=== PATIENT | female | born 1935 | race Caucasian/White ===

== ENCOUNTER → 2023-10-01 09:42 | Outpatient (REF) | payer OTHER, SELFPAY ==
[2023-10-01 11:45] LABS: Blood Urea Nitrogen 27 mg/dl (7-17); Calcium 8.7 mg/dl (8.4-10.2); Carbon Dioxide 29 mmol/L (22-30); Chloride 104 mmol/L (98-107); Glucose 94 mg/dl (70-99); Potassium 4.1 mmol/L (3.5-5.1); Sodium 138 mmol/L (135-145); eGFR 39.55
== END ==
LOC: OLABWHC 09:42
PROVIDERS: ATTENDING PHYSICIAN Internal Medicine
DX: F02.818 Dementia in other diseases classified elsewhere, unspecified severity, with other behavioral disturbance (principal); E78.5 Hyperlipidemia, unspecified; F41.9 Anxiety disorder, unspecified; I10 Essential (primary) hypertension; N18.9 Chronic kidney disease, unspecified; R41.89 Other symptoms and signs involving cognitive functions and awareness
CPT/HCPCS: 36415; 80048

== ENCOUNTER → 2023-12-05 11:38 | Outpatient (REF) | payer OTHER, MEDICARE, SELFPAY ==
[2023-12-05 11:56] LABS: % Basophils 0.9 % (0-2); % Eosinophils 4.1 % (0-6); % Immature Granulocytes 0.7 % (0-0.5); % Lymphocytes 15.2 % (20.5-51.1); % Monocytes 6.5 % (1.7-9.3); % Neutrophils 72.6 % (42.2-75.2); Absolute Basophils 0.1 10^3/uL (0-0.2); Absolute Eosinophils 0.3 10^3/uL (0-0.7); Absolute Immature Granulocytes 0.1 10^3/uL (0-0.05); Absolute Lymphocytes 1.1 10^3/uL (1.2-3.4); Absolute Monocytes 0.5 10^3/uL (0.1-0.6); Absolute Neutrophils 5.5 10^3/uL (1.4-6.5); Hematocrit 36.5 % (37.0-47.0); Hemoglobin 12.3 g/dL (12.0-16.0); Mean Corp Hgb Conc. 33.7 g/dL (33.0-37.0); Mean Platelet Volume 10.8 fL (7.4-10.4); Nucleated Red Blood Cells % 0 %; Platelet Count 276 10^3/uL (130-400); Red Cell Dist. Width 13.1 % (11.5-14.5); White Blood Cell Count 7.5 10^3/uL (4.8-10.8)
[2023-12-05 12:15] LABS: ALT (SGPT) 10 U/L (0-35); AST (SGOT) 20 U/L (14-36); Albumin 3.5 g/dl (3.5-5.0); Alkaline Phosphatase 83 U/L (38-126); Direct Bilirubin 0.1 mg/dl (0.0-0.4); Glucose 95 mg/dl (70-99); HDL Cholesterol 62 mg/dl; LDL Cholesterol, Calculated 100 mg/dl; Total Bilirubin 0.5 mg/dl (0.2-1.3); Total Cholesterol 186 mg/dl (50-199); Triglyceride 124 mg/dl (10-149); Very Low Density Lipoprotein 24 mg/dl (0-30)
[2023-12-05 12:45] LABS: TSH 2.95 uIU/ml (0.47-4.68)
[2023-12-05 13:04] LABS: Vitamin B12 618 pg/ml (239-931)
[2023-12-05 14:00] LABS: Glycohemoglobin (HgbA1c) 5.7 % (4.0-5.6)
== END ==
LOC: OLABWHC 11:38
PROVIDERS: ATTENDING PHYSICIAN Internal Medicine
DX: E78.5 Hyperlipidemia, unspecified (principal); I10 Essential (primary) hypertension; N18.9 Chronic kidney disease, unspecified
CPT/HCPCS: 36415; 80061; 80076; 82607; 82947; 83036; 84443; 85025

== ENCOUNTER → 2024-02-28 10:51 | Outpatient (REF) | payer MEDICARE, SELFPAY ==
[2024-02-28 12:20] LABS: Hematocrit 36.4 % (37.0-47.0); Hemoglobin 12.1 g/dL (12.0-16.0); Mean Corp Hgb Conc. 33.2 g/dL (33.0-37.0); Mean Corpuscular Hgb 29.5 pg (27.0-31.0); Mean Corpuscular Volume 88.8 fL (81.0-99.0); Mean Platelet Volume 11.3 fL (7.4-10.4); Platelet Count 204 10^3/uL (130-400); Red Cell Dist. Width 13.5 % (11.5-14.5); White Blood Cell Count 7.7 10^3/uL (4.8-10.8)
[2024-02-28 12:37] LABS: Glycohemoglobin (HgbA1c) 5.8 % (4.0-5.6)
[2024-02-28 12:49] LABS: ALT (SGPT) 10 U/L (0-35); AST (SGOT) 19 U/L (14-36); Albumin 3.4 g/dl (3.5-5.0); Alkaline Phosphatase 91 U/L (38-126); Blood Urea Nitrogen 28 mg/dl (7-17); Calcium 8.8 mg/dl (8.4-10.2); Carbon Dioxide 26 mmol/L (22-30); Chloride 104 mmol/L (98-107); Glucose 94 mg/dl (70-99); HDL Cholesterol 54 mg/dl; LDL Cholesterol, Calculated 170 mg/dl; Magnesium 1.7 mg/dl (1.6-2.3); Potassium 3.4 mmol/L (3.5-5.1); Sodium 137 mmol/L (135-145); Total Bilirubin 0.5 mg/dl (0.2-1.3); Total Cholesterol 243 mg/dl (50-199); Triglyceride 96 mg/dl (10-149); Very Low Density Lipoprotein 19 mg/dl (0-30); eGFR 43.54
[2024-02-28 13:02] LABS: Free T4 1.21 ng/dl (0.78-2.19)
[2024-02-28 13:16] LABS: TSH 3.96 uIU/ml (0.47-4.68)
== END ==
LOC: OLABWHC 10:51
PROVIDERS: ATTENDING PHYSICIAN Internal Medicine
DX: F02.818 Dementia in other diseases classified elsewhere, unspecified severity, with other behavioral disturbance (principal); W19.XXXD Unspecified fall, subsequent encounter; F41.9 Anxiety disorder, unspecified; F32.9 Major depressive disorder, single episode, unspecified; R41.89 Other symptoms and signs involving cognitive functions and awareness; E78.5 Hyperlipidemia, unspecified; I10 Essential (primary) hypertension; N18.9 Chronic kidney disease, unspecified
CPT/HCPCS: 36415; 80053; 80061; 83036; 83735; 84439; 84443; 85027

== ENCOUNTER 2024-04-03 02:26 | Inpatient (IN) | payer MEDICARE, SELFPAY ==
[2024-04-02 15:59] VITALS: BP 197/95
[2024-04-02 16:38] LABS: % Basophils 0.7 % (0-2); % Eosinophils 2.4 % (0-6); % Immature Granulocytes 0.8 % (0-0.5); % Lymphocytes 17.1 % (20.5-51.1); % Monocytes 6.2 % (1.7-9.3); % Neutrophils 72.8 % (42.2-75.2); Absolute Basophils 0.1 10^3/uL (0-0.2); Absolute Eosinophils 0.3 10^3/uL (0-0.7); Absolute Immature Granulocytes 0.1 10^3/uL (0-0.05); Absolute Lymphocytes 1.8 10^3/uL (1.2-3.4); Absolute Monocytes 0.7 10^3/uL (0.1-0.6); Absolute Neutrophils 7.7 10^3/uL (1.4-6.5); Hematocrit 40.5 % (37.0-47.0); Hemoglobin 14.2 g/dL (12.0-16.0); Mean Corp Hgb Conc. 35.1 g/dL (33.0-37.0); Mean Corpuscular Hgb 30.5 pg (27.0-31.0); Mean Corpuscular Volume 87.1 fL (81.0-99.0); Mean Platelet Volume 11.1 fL (7.4-10.4); Nucleated Red Blood Cells % 0 %; Platelet Count 229 10^3/uL (130-400); Red Blood Cell Count 4.65 10^6/uL (4.20-5.40); Red Cell Dist. Width 13.7 % (11.5-14.5); White Blood Cell Count 10.5 10^3/uL (4.8-10.8)
[2024-04-02] MEDS: DILAUDID 0.5 MG IV (16:46)
[2024-04-02] MEDS: ZOFRAN 4 MG IV (16:46)
[2024-04-02 16:48] LABS: ALT (SGPT) 12 U/L (0-35); AST (SGOT) 22 U/L (14-36); Albumin 4.1 g/dl (3.5-5.0); Alkaline Phosphatase 117 U/L (38-126); Blood Urea Nitrogen 34 mg/dl (7-17); Carbon Dioxide 26 mmol/L (22-30); Chloride 103 mmol/L (98-107); Estimated Creatinine Clearance 35 ml/min; Glucose 118 mg/dl (70-99); Potassium 3.3 mmol/L (3.5-5.1); Sodium 139 mmol/L (135-145); Total Bilirubin 0.5 mg/dl (0.2-1.3); Total Protein 6.8 g/dl (6.3-8.2); eGFR 39.55
[2024-04-02] MEDS: NSS 1000 IV (16:49)
[2024-04-02 18:02] VITALS: BP 176/97
[2024-04-02 18:24] LABS: Urine Albumin 2+ (Neg - Trace); Urine Bilirubin Negative (Negative); Urine Character Slightly Cloudy (Clear); Urine Color Yellow; Urine Glucose Negative (Negative); Urine Ketone Negative (Negative); Urine Leukocyte Trace (Negative); Urine Nitrite Negative (Negative); Urine Occult Blood 1+ (Negative); Urine Urobilinogen Negative (Neg - 1+); Urine pH 6.5 (5.0-9.0)
[2024-04-02 18:51] LABS: Urine White Cell 0-2 /HPF (0-5)
--- NOTE | 2024-04-02 21:02 | ED.GENMED ---
History of Present Illness
<Carisa Burgos NP - Last Filed: 04/04/24 19:38>
General
Chief Complaint: Back Pain
Source: patient and family (son)
Time Seen by Provider: 04/02/24 16:32
Nursing documentation reviewed up to this point in time: agreed with
History of Present Illness
History of Present Illness:
Patient to ED from [facility] with sudden onset of severe low back and lower abd pain. SOn states he visited with patient this AM and she was doing well but then receivd call 2 hours later stating his mother is in pain. He denies any history of
new trauma. Brought to ED via EMS for eval. No fever/chills, recent illness.
Past History
<Carisa Burgos [employer] - Last Filed: 04/04/24 19:38>
Past History
ED Past Medical History: HTN, Hypercholesterolemia and Psychiatric (anxiety)
Social History
Tobacco: Non-smoker
Alcohol: None
Drug: None
Review of Systems
<Carisa Burgos NP - Last Filed: 04/04/24 19:38>
Review of Systems
Allergies reviewed?: Yes
All Other Systems: ROS reviewed and negative except as documented in HPI and ROS
Constitutional: Reports no symptoms
EENT: Reports no symptoms
Respiratory: Reports no symptoms
Cardiac: Reports no symptoms
ABD/GI: Reports abdominal pain (lower abd. pain)
: Reports difficulty voiding
Musculoskeletal: Reports back pain
Skin: Reports no symptoms
Neurological: Reports no symptoms
Psychiatric: Reports no symptoms
Phy Exam
<Carisa Burgos [employer] - Last Filed: 04/04/24 19:38>
General Physical Exam
General Presentation: well appearing and no apparent distress
General age: appears stated age
General Skin: warm and dry
General Mental: alert
General Hydration: appears well hydrated
Cardiovascular Exam
Cardiovascular Exam: regular rate/rhythm and no edema
Pulmonary Exam
Pulmonary Exam: lungs clear and no respiratory distress
Gastrointestinal Exam
Gastrointestinal Exam: normal bowel sounds, soft, no organomegaly and no cva tenderness
Palpation: left lower quadrant: Moderate tenderness and right lower quadrant: Moderate tenderness
Neurological Exam
Neurological Exam: alert, oriented x3, CN II-XII intact, no sensory deficits, speech normal and motor weakness (BLE - unable to move on own)
Moni Coma Scale
Eye Opening: Spontaneous
Verbal Response: Oriented
Motor Response: Obeys Commands
GCS Total Score: 15
Mental
Mental Status: oriented to person, oriented to place, oriented to time and usual mental status
Describe Speech: normal speech
Cranial
Cranial Nerves: normal and no facial asymetry
EOM (CN3/4/6): intact
Motor
Seizure Activity: none
Tremors: none
Right upper extremity: 4
Right lower extremity: 0
Left upper extremity: 4
Left lower extremity: 0
Bilateral upper extremities: 4
Bilateral lower extremities: 0
Sensory
Sensory Exam: intact
Reflexes
Reflexes: +1: Left patellar, +1: Right patellar, +1: Left achilles and +1: Right achilles
Musculoskeletal Exam
Musculoskeletal Exam: other (Sensation intct BLE. unable to move legs on own)
Skin Exam
Skin Exam: normal color, warm/dry and no rash
Psychiatric Exam
Psychiatric Exam: normal mood/affect
<Ivis Ramos, DO - Last Filed: 04/06/24 15:12>
Seymour Coma Scale
GCS Total Score: 15
<David Pinto, DO - Last Filed: 04/03/24 04:37>
Seymour Coma Scale
GCS Total Score: 15
Course
<Carisa Burgos NP - Last Filed: 04/04/24 19:38>
Orders/Labs/Results
Orders:
Orders
04/02/24 16:20
CBC/With Diff [Complete Blood Count/With Diff] Urgent
CMP [Comprehensive Metabolic Panel] Urgent
04/02/24 16:41
0.9% Sodium Chloride 1000 ml [Nss] 1,000 ml IV BOLUS
HYDROmorphone [Dilaudid] 0.5 mg IV NOW STA
Ondansetron Injectable [Zofran] 4 mg IV NOW STA
04/02/24 17:01
CT Abd/pel Without Iv Or Oral Urgent
Comment:
Reason For Exam: flank pain
04/02/24 18:00
Urinalysis Reflex To Culture Urgent
Date Specimen was Collected: 04/02/24
Time Specimen was Collected: 17:45
Urine Microscopic Reflex Cult Urgent
04/02/24 21:55
MR Lumbar Without Contrast Urgent
Comment:
Reason For Exam: lumbar pain, urinary retention, unable to move BLE
OK for patient to be off Cardiac Monitoring for MRI: Yes
Recent pill cam endoscopy?: No
Pacemaker/Defibrillator?: No
Brain Aneurysm Clips?: No
Have you ever worked with metal? grinding metal? welding?: No
Cochlear(ear) implants?: No
Does Pt have a Temp Sensing Cath?: No
Does the patient have IV access?: Yes
Does the patient have any stents?: No
MR Thoracic Spine Without Urgent
Comment:
Reason For Exam: pain, urinary retention, BLE motor deficit
OK for patient to be off Cardiac Monitoring for MRI: Yes
Recent pill cam endoscopy?: No
04/02/24 22:39
Lorazepam [Ativan] 2 mg IV NOW STA
04/03/24 01:58
Admit/Transfer Patient As Directed
Co-Sign Provider:
Level of Care: Inpatient admission
Assign to:: Telemetry
Physician / Group: Audra Samaniego
Diagnosis: cauda equina
Reason for Telemetry: Chest Pain syndromes
Date to Stop Telemetry: 04/05/24
Time to Stop Telemetry: 11:00
Reason for Hospitalization: cauda equina
Expected length of stay greater than two midnights?: Yes
ELOS- Estimated Length of Stay in days: 3
I certify the patient meets the requirements for IP care: Yes
PRN Pain Medication Management As Directed
May give lesser potent ordered pain med per pt: Yes
preference::
Protocol:: Medication orders for pain may be administered in a
manner that supports deferring to patient preference
when the pt is:
- Requesting an ordered lesser potent pain medication.
Least to most potent pain medications are defined
as: acetaminophen < NSAID < tramadol < opioids
(morphine, oxycodone, hydromorphone).
- Requesting a lesser dose of the same medication IF
ORDERED.
- Requesting a less intrusive route of administration
if both routes are prescribed by the provider (PO <
IV).
04/03/24 01:59
Code Status As Directed
Resuscitation Status: Do not resuscitate
Based on pt advanced directive or healthcare POA form: Yes
DNR Bracelet Application ONCE
04/03/24 02:00
Flush (0.9% Sodium Chloride) [Flush (Nss)] See Dose Instructions IV PER PROTOCOL
04/03/24 02:15
Potassium Chloride [KCl] 20 meq 0.9% Sodium Chloride 250 ml [Nss] 250 ml IV ONCE
04/03/24 02:45
0.9% Sodium Chloride 1000 ml [Nss] 1,000 ml IV 80 mls/hr
Acetaminophen [Tylenol] 650 mg PO Q6HPRN PRN
HYDROmorphone [Dilaudid] 0.5 mg IV Q4HPRN PRN
04/03/24 02:45
Neurosurgery Consult Urgent
Consulting Provider: Cynthia Ham
Was physician already notified: Yes
Activity As Directed
Activity Level: Beach Chair
Neurological Checks As Directed
Frequency: q8h
Pneumatic Compression Sleeves As Directed
Type: Knee high
Vital Signs As Directed
Frequency: Per unit guidelines
DX Deep Vein Thrombosis Video Routine
04/03/24 06:00
MR Lumbar With Contrast IN AM
Comment: requested ERASMO in AM by Dr. Ham; possible OR
Reason For Exam: cauda equina
Recent pill cam endoscopy?: No
MR Thoracic Spine W Contrast IN AM
Comment: requested ERASMO in AM by Dr. Ham; possible OR
Reason For Exam: cauda equina/ possible mass
Recent pill cam endoscopy?: No
04/03/24 06:04
Complete Blood Count/With Diff IN AM
Comprehensive Metabolic Panel IN AM
Magnesium IN AM
04/03/24 08:00
Metoprolol Xl [Toprol Xl] 50 mg PO DAILY
NIFEdipine EXTENDED RELEASE [Procardia Xl (Extended Release)] 60 mg PO DAILY
Risperidone [Risperdal] 0.5 mg PO DAILY
Sertraline HCl [Zoloft] 75 mg PO DAILY
04/03/24 18:00
Risperidone [Risperdal] 0.25 mg PO QPM
04/03/24 22:00
Melatonin 6 mg PO HS
04/05/24 11:00
DC Protocol for Telemetry ONCE
Abnormal Lab Results
04/02/24 04/02/24
16:20 18:00
MPV 11.1 H fL
(7.4-10.4)
Abs Immat Gran (auto) 0.1 H 10^3/uL
(0-0.05)
Absolute Neuts (auto) 7.7 H 10^3/uL
(1.4-6.5)
Absolute Monos (auto) 0.7 H 10^3/uL
(0.1-0.6)
Immature Gran % 0.8 H %
(0-0.5)
Lymphocytes % 17.1 L %
(20.5-51.1)
Potassium 3.3 L mmol/L
(3.5-5.1)
BUN 34 H mg/dl
(7-17)
Creatinine 1.3 H mg/dL
(0.6-1.0)
Glucose 118 H mg/dl
(70-99)
Ur Occult Blood Reflex 1+ A
(Negative)
Leukocyte Esterase Rfl Trace A
(Negative)
Urine RBC 3-6 A /HPF
(0-2)
Urine Albumin (Reflex) 2+ A
(Neg - Trace)
04/02/24 16:20
04/02/24 16:20
Vital Signs
Initial and Last Documented VS:
Initial Vital Signs
Temp Pulse Resp BP Pulse Ox
98.7 F 86 16 197/95 92
04/02/24 15:59 04/02/24 15:59 04/02/24 15:59 04/02/24 15:59 04/02/24 15:59
Last Documented Vital Signs
Temp Pulse Resp BP Pulse Ox
98.3 F 75 18 153/72 96
04/06/24 07:05 04/06/24 07:41 04/06/24 07:05 04/06/24 07:41 04/06/24 07:05
<Ivis Ramos, DO - Last Filed: 04/06/24 15:12>
Orders/Labs/Results
Orders:
Orders
04/02/24 16:20
CBC/With Diff [Complete Blood Count/With Diff] Urgent
CMP [Comprehensive Metabolic Panel] Urgent
04/02/24 16:41
0.9% Sodium Chloride 1000 ml [Nss] 1,000 ml IV BOLUS
HYDROmorphone [Dilaudid] 0.5 mg IV NOW STA
Ondansetron Injectable [Zofran] 4 mg IV NOW STA
04/02/24 17:01
CT Abd/pel Without Iv Or Oral Urgent
Comment:
Reason For Exam: flank pain
04/02/24 18:00
Urinalysis Reflex To Culture Urgent
Date Specimen was Collected: 04/02/24
Time Specimen was Collected: 17:45
Urine Microscopic Reflex Cult Urgent
04/02/24 21:55
MR Lumbar Without Contrast Urgent
Comment:
Reason For Exam: lumbar pain, urinary retention, unable to move BLE
OK for patient to be off Cardiac Monitoring for MRI: Yes
Recent pill cam endoscopy?: No
Pacemaker/Defibrillator?: No
Brain Aneurysm Clips?: No
Have you ever worked with metal? grinding metal? welding?: No
Cochlear(ear) implants?: No
Does Pt have a Temp Sensing Cath?: No
Does the patient have IV access?: Yes
Does the patient have any stents?: No
MR Thoracic Spine Without Urgent
Comment:
Reason For Exam: pain, urinary retention, BLE motor deficit
OK for patient to be off Cardiac Monitoring for MRI: Yes
Recent pill cam endoscopy?: No
04/02/24 22:39
Lorazepam [Ativan] 2 mg IV NOW STA
04/03/24 01:58
Admit/Transfer Patient As Directed
Co-Sign Provider:
Level of Care: Inpatient admission
Assign to:: Telemetry
Physician / Group: Audra Samaniego
Diagnosis: cauda equina
Reason for Telemetry: Chest Pain syndromes
Date to Stop Telemetry: 04/05/24
Time to Stop Telemetry: 11:00
Reason for Hospitalization: cauda equina
Expected length of stay greater than two midnights?: Yes
ELOS- Estimated Length of Stay in days: 3
I certify the patient meets the requirements for IP care: Yes
PRN Pain Medication Management As Directed
May give lesser potent ordered pain med per pt: Yes
preference::
Protocol:: Medication orders for pain may be administered in a
manner that supports deferring to patient preference
when the pt is:
- Requesting an ordered lesser potent pain medication.
Least to most potent pain medications are defined
as: acetaminophen < NSAID < tramadol < opioids
(morphine, oxycodone, hydromorphone).
- Requesting a lesser dose of the same medication IF
ORDERED.
- Requesting a less intrusive route of administration
if both routes are prescribed by the provider (PO <
IV).
04/03/24 01:59
Code Status As Directed
Resuscitation Status: Do not resuscitate
Based on pt advanced directive or healthcare POA form: Yes
DNR Bracelet Application ONCE
04/03/24 02:00
Flush (0.9% Sodium Chloride) [Flush (Nss)] See Dose Instructions IV PER PROTOCOL
04/03/24 02:15
Potassium Chloride [KCl] 20 meq 0.9% Sodium Chloride 250 ml [Nss] 250 ml IV ONCE
04/03/24 02:45
0.9% Sodium Chloride 1000 ml [Nss] 1,000 ml IV 80 mls/hr
Acetaminophen [Tylenol] 650 mg PO Q6HPRN PRN
HYDROmorphone [Dilaudid] 0.5 mg IV Q4HPRN PRN
04/03/24 02:45
Neurosurgery Consult Urgent
Consulting Provider: Cynthia Ham
Was physician already notified: Yes
Activity As Directed
Activity Level: Beach Chair
Neurological Checks As Directed
Frequency: q8h
Pneumatic Compression Sleeves As Directed
Type: Knee high
Vital Signs As Directed
Frequency: Per unit guidelines
DX Deep Vein Thrombosis Video Routine
04/03/24 06:00
MR Lumbar With Contrast IN AM
Comment: requested ERASMO in AM by Dr. Ham; possible OR
Reason For Exam: cauda equina
Recent pill cam endoscopy?: No
MR Thoracic Spine W Contrast IN AM
Comment: requested ERASMO in AM by Dr. Ham; possible OR
Reason For Exam: cauda equina/ possible mass
Recent pill cam endoscopy?: No
04/03/24 06:04
Complete Blood Count/With Diff IN AM
Comprehensive Metabolic Panel IN AM
Magnesium IN AM
04/03/24 08:00
Metoprolol Xl [Toprol Xl] 50 mg PO DAILY
NIFEdipine EXTENDED RELEASE [Procardia Xl (Extended Release)] 60 mg PO DAILY
Risperidone [Risperdal] 0.5 mg PO DAILY
Sertraline HCl [Zoloft] 75 mg PO DAILY
04/03/24 18:00
Risperidone [Risperdal] 0.25 mg PO QPM
04/03/24 22:00
Melatonin 6 mg PO HS
04/05/24 11:00
DC Protocol for Telemetry ONCE
Abnormal Lab Results
04/02/2418
16:20 18:00
MPV 11.1 H fL
(7.4-10.4)
Abs Immat Gran (auto) 0.1 H 10^3/uL
(0-0.05)
Absolute Neuts (auto) 7.7 H 10^3/uL
(1.4-6.5)
Absolute Monos (auto) 0.7 H 10^3/uL
(0.1-0.6)
Immature Gran % 0.8 H %
(0-0.5)
Lymphocytes % 17.1 L %
(20.5-51.1)
Potassium 3.3 L mmol/L
(3.5-5.1)
BUN 34 H mg/dl
(7-17)
Creatinine 1.3 H mg/dL
(0.6-1.0)
Glucose 118 H mg/dl
(70-99)
Ur Occult Blood Reflex 1+ A
(Negative)
Leukocyte Esterase Rfl Trace A
(Negative)
Urine RBC 3-6 A /HPF
(0-2)
Urine Albumin (Reflex) 2+ A
(Neg - Trace)
04/02/24 16:20
04/02/24 16:20
Vital Signs
Initial and Last Documented VS:
Initial Vital Signs
Temp Pulse Resp BP Pulse Ox
98.7 F 86 16 197/95 92
04/02/24 15:59 04/02/24 15:59 04/02/24 15:59 04/02/24 15:59 04/02/24 15:59
Last Documented Vital Signs
Temp Pulse Resp BP Pulse Ox
98.3 F 75 18 153/72 96
04/06/24 07:05 04/06/24 07:41 04/06/24 07:05 04/06/24 07:41 04/06/24 07:05
<David Pinto, DO - Last Filed: 04/03/24 04:37>
Orders/Labs/Results
Orders:
Orders
04/02/24 16:20
CBC/With Diff [Complete Blood Count/With Diff] Urgent
CMP [Comprehensive Metabolic Panel] Urgent
04/02/24 16:41
0.9% Sodium Chloride 1000 ml [Nss] 1,000 ml IV BOLUS
HYDROmorphone [Dilaudid] 0.5 mg IV NOW STA
Ondansetron Injectable [Zofran] 4 mg IV NOW STA
04/02/24 17:01
CT Abd/pel Without Iv Or Oral Urgent
Comment:
Reason For Exam: flank pain
04/02/24 18:00
Urinalysis Reflex To Culture Urgent
Date Specimen was Collected: 04/02/24
Time Specimen was Collected: 17:45
Urine Microscopic Reflex Cult Urgent
04/02/24 21:55
MR Lumbar Without Contrast Urgent
Comment:
Reason For Exam: lumbar pain, urinary retention, unable to move BLE
OK for patient to be off Cardiac Monitoring for MRI: Yes
Recent pill cam endoscopy?: No
Pacemaker/Defibrillator?: No
Brain Aneurysm Clips?: No
Have you ever worked with metal? grinding metal? welding?: No
Cochlear(ear) implants?: No
Does Pt have a Temp Sensing Cath?: No
Does the patient have IV access?: Yes
Does the patient have any stents?: No
MR Thoracic Spine Without Urgent
Comment:
Reason For Exam: pain, urinary retention, BLE motor deficit
OK for patient to be off Cardiac Monitoring for MRI: Yes
Recent pill cam endoscopy?: No
04/02/24 22:39
Lorazepam [Ativan] 2 mg IV NOW STA
04/03/24 01:58
Admit/Transfer Patient As Directed
Co-Sign Provider:
Level of Care: Inpatient admission
Assign to:: Telemetry
Physician / Group: Audra Samaniego
Diagnosis: cauda equina
Reason for Telemetry: Chest Pain syndromes
Date to Stop Telemetry: 04/05/24
Time to Stop Telemetry: 11:00
Reason for Hospitalization: cauda equina
Expected length of stay greater than two midnights?: Yes
ELOS- Estimated Length of Stay in days: 3
I certify the patient meets the requirements for IP care: Yes
PRN Pain Medication Management As Directed
May give lesser potent ordered pain med per pt: Yes
preference::
Protocol:: Medication orders for pain may be administered in a
manner that supports deferring to patient preference
when the pt is:
- Requesting an ordered lesser potent pain medication.
Least to most potent pain medications are defined
as: acetaminophen < NSAID < tramadol < opioids
(morphine, oxycodone, hydromorphone).
- Requesting a lesser dose of the same medication IF
ORDERED.
- Requesting a less intrusive route of administration
if both routes are prescribed by the provider (PO <
IV).
04/03/24 01:59
Code Status As Directed
Resuscitation Status: Do not resuscitate
Based on pt advanced directive or healthcare POA form: Yes
DNR Bracelet Application ONCE
04/03/24 02:00
Flush (0.9% Sodium Chloride) [Flush (Nss)] See Dose Instructions IV PER PROTOCOL
04/03/24 02:15
Potassium Chloride [KCl] 20 meq 0.9% Sodium Chloride 250 ml [Nss] 250 ml IV ONCE
04/03/24 02:45
0.9% Sodium Chloride 1000 ml [Nss] 1,000 ml IV 80 mls/hr
Acetaminophen [Tylenol] 650 mg PO Q6HPRN PRN
HYDROmorphone [Dilaudid] 0.5 mg IV Q4HPRN PRN
04/03/24 02:45
Neurosurgery Consult Urgent
Consulting Provider: Cynthia Ham
Was physician already notified: Yes
Activity As Directed
Activity Level: Beach Chair
Neurological Checks As Directed
Frequency: q8h
Pneumatic Compression Sleeves As Directed
Type: Knee high
Vital Signs As Directed
Frequency: Per unit guidelines
DX Deep Vein Thrombosis Video Routine
04/03/24 06:00
MR Lumbar With Contrast IN AM
Comment: requested ERASMO in AM by Dr. Ham; possible OR
Reason For Exam: cauda equina
Recent pill cam endoscopy?: No
MR Thoracic Spine W Contrast IN AM
Comment: requested ERASMO in AM by Dr. Ham; possible OR
Reason For Exam: cauda equina/ possible mass
Recent pill cam endoscopy?: No
04/03/24 06:04
Complete Blood Count/With Diff IN AM
Comprehensive Metabolic Panel IN AM
Magnesium IN AM
04/03/24 08:00
Metoprolol Xl [Toprol Xl] 50 mg PO DAILY
NIFEdipine EXTENDED RELEASE [Procardia Xl (Extended Release)] 60 mg PO DAILY
Risperidone [Risperdal] 0.5 mg PO DAILY
Sertraline HCl [Zoloft] 75 mg PO DAILY
04/03/24 18:00
Risperidone [Risperdal] 0.25 mg PO QPM
04/03/24 22:00
Melatonin 6 mg PO HS
04/05/24 11:00
DC Protocol for Telemetry ONCE
Abnormal Lab Results
04/02/2418
16:20 18:00
MPV 11.1 H fL
(7.4-10.4)
Abs Immat Gran (auto) 0.1 H 10^3/uL
(0-0.05)
Absolute Neuts (auto) 7.7 H 10^3/uL
(1.4-6.5)
Absolute Monos (auto) 0.7 H 10^3/uL
(0.1-0.6)
Immature Gran % 0.8 H %
(0-0.5)
Lymphocytes % 17.1 L %
(20.5-51.1)
Potassium 3.3 L mmol/L
(3.5-5.1)
BUN 34 H mg/dl
(7-17)
Creatinine 1.3 H mg/dL
(0.6-1.0)
Glucose 118 H mg/dl
(70-99)
Ur Occult Blood Reflex 1+ A
(Negative)
Leukocyte Esterase Rfl Trace A
(Negative)
Urine RBC 3-6 A /HPF
(0-2)
Urine Albumin (Reflex) 2+ A
(Neg - Trace)
04/02/24 16:20
04/02/24 16:20
Vital Signs
Initial and Last Documented VS:
Initial Vital Signs
Temp Pulse Resp BP Pulse Ox
98.7 F 86 16 197/95 92
04/02/24 15:59 04/02/24 15:59 04/02/24 15:59 04/02/24 15:59 04/02/24 15:59
Last Documented Vital Signs
Temp Pulse Resp BP Pulse Ox
98.3 F 75 18 153/72 96
04/06/24 07:05 04/06/24 07:41 04/06/24 07:05 04/06/24 07:41 04/06/24 07:05
<Carisa Burgos NP - Last Filed: 04/04/24 19:38>
*Radiology
Radiology exam reviewed: radiology read reviewed
*Pulse Oximetry
Patient hypoxic: no
<David Pinto DO - Last Filed: 04/03/24 04:37>
*Critical Care Note
Total Time (30-74mins, 75-104mins- exclusive of procedures): Not Applicable
<Carisa Burgos NP - Last Filed: 04/04/24 19:38>
Update Note
Update Note:
Labs CT results reviewed [facility] patient and family. Pain is improved after IV dilaudid. 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 Family states she is unable to ambulate but is able to stand to transfer. Distended bladder seen on CT.
Bladder scanfor 500cc. Goodman catheter placed by RN and is draining clear yellow urine. Discussed concern and CT results with neurosurgery who recommonds MRI tonight. Discussed with family. They are in agreement of MRI and agree on surgical
intervention if indicated. Ameya signed out to Dr. Pinto
Spoke with MRI. Her shift is over, [facility] has been contacted. Awaiting arrival of [facility].
<David Pinto, DO - Last Filed: 04/03/24 04:37>
Update Note
Update Note:
Labs CT results reviewed [facility] patient and family. Pain is improved after IV dilaudid. 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 Family states she is unable to ambulate but is able to stand to transfer. Distended bladder seen on CT.
Bladder scanfor 500cc. Goodman catheter placed by RN and is draining clear yellow urine. Discussed concern and CT results with neurosurgery who recommonds MRI tonight. Discussed with family. They are in agreement of MRI and agree on surgical
intervention if indicated. Ameya signed out to Dr. Pinto
Spoke with MRI. Her shift is over, [facility] has been contacted. Awaiting arrival of [employer].
04/02/2024 2248 PM: Received patient in signout. I went in to introduce myself to the patient. Unfortunately due to her dementia we were unable to have a meaningful conversation. Awaiting MRI. Vital signs are stable at this time.
04/03/2024 0037 AM:NAME: CONSUELO BOBO
DATE OF EXAM: 04/02/2024
Patient No: [id number]
Physician: NUPUR^Madalyn
Date of : 1935
Past Medical History (entered by Technologist):
Reason For Exam (entered by Technologist):
Other Notes (entered by Technologist): Pain and urinary retention.
No prior
Additional Information (per [facility]):
MR THORACIC/LUMBAR SPINE
IMPRESSION:
T SPINE:
Apparent right paracentral soft tissue within the dorsal canal at T10-11 extending through T12, measuring up to 1.1 cm x 3.9 cm, T1 hypointense and T2 hyperintense, contributing to severe canal stenosis at T11 and T12. Limited characterization
given absence of IV contrast, but findings could represent underlying mass lesion. No definite cord signal abnormality.
No acute fracture or traumatic malalignment. 3 mmof anterolisthesis of T2 on T3 with mild kyphosis at this level.
L SPINE:
Continuation of soft tissue seen within the lower thoracic spine within the upper thoracic spine spanning T12-L2, with T1 hypointense and T2 hyperintense signal. Soft tissue results in severe canal stenosis at T12/L1 through L2, with severe
compression of the conus. Findings concerning for possible underlying malignancy, although infection would remain in the differential. Findings could be further characterized with contrast enhanced study as clinically indicated.
Severe right L1-2 neural foraminal narrowing.
Mild atrophy of the paraspinal musculature.
Case discussed with Dr. Pinto of the ED at 1232 of the ED at 1232 AM ET.
04/03/2024 0055 AM: Spoke with neurosurgeon Dr. Cynthia Ham. Alphonso Vitale texted her the results of the MRI. She wishes to discuss this case with the son directly. Alphonso Vitale texted her the number for Haroldo, her son. She will call him directly.
04/03/2024 0136 AM: Spoke with neurosurgery again. She wishes patient to be admitted to the hospitalist service here at [facility] for an MRI of the thoracic and lumbar spines with IV contrast to be scheduled for the morning. Depending on
the results and her discussion with patient's son, it is possible that patient to undergo laminectomy at [facility] tomorrow by Dr. Ham.
ED Attending Note
<Carisa Burgos NP - Last Filed: 04/04/24 19:38>
-
Portions of this chart may have been created with voice recognition software.� Occasional wrong word or��sound alike� substitutions may have occurred due to the inherent limitations of voice recognition software.
<Ivis Ramos, DO - Last Filed: 04/06/24 15:12>
ED Attending Note
Patient seen and examined by attending physician: Yes
I performed the substantive portion of visit, reviewed & personally made and approve the management plan that is documented in note by myself or ALFA.: Yes
I performed a history and physical exam of patient and discussed management with resident, I reviewed resident's note and agree with documented findings and plan of care.: Yes
ED Attending Note:
Patient seen and evaluated at bedside, 88-year-old female with reported history of ambulatory issues. Patient does not ambulate at her facility. She presents to the emergency department with abdominal pain and back pain. Patient initially
evaluated by nurse practitioner, with primary complaint lower abdominal pain. Initial workup focused on abdominal pain, as well as pain control. Patient was administered Dilaudid. Patient had interval improvement of her pain. Labs unremarkable.
CT abdominal imaging without significant acute pathology, degenerative changes to the back. However, on return from CT scan, noted that patient was retaining urine. Patient also now noting that she cannot move her legs. Unclear when symptoms
started. Patient does have some baseline dementia, difficult historian. Family reports that patient does not ambulate, however had previously been able to stand up and transfer to her wheelchair.
On examination, patient is not moving her legs, was able to wiggle her toes upon arrival to the hospital per nursing staff. Sensation however is grossly intact. Sensation to lower extremities is intact. No warmth erythema to the lower
extremities. Reproducible tenderness to the lower lumbar back, generalized. No step-offs. In the setting of urinary retention, back pain, possible new motor deficit, cannot safely rule out spinal pathology. Initial plan for emergent MRI imaging,
however in discussion with patient, she explained that she does not want any surgical intervention. However again underlying dementia. [id number] conversation was had between ALFA and family, deliberating between family's wishes. Ultimately
they would like to proceed with MRI imaging and ultimately surgical intervention if necessary. For this reason, will obtain emergent MRI imaging. Patient will likely require Ativan for MRI.
23:00 - patient signed out to incoming physician pending MRI imaging and ultimate disposition, with plan for admission.
Discharge Plan
Departure
Patient Disposition: Admit
Date of Disposition: 04/03/24
Time of Disposition: 01:37
Presentation/result/management discussed w/ accepting MD/DO: Hospitalist
Discharge Problem:
Paralysis, Spinal cord lesion
Interventions
Interventions:
*Risk Screen - Suicide Last Done: 04/02/24 15:59
*General Assessment Last Done: 04/02/24 15:59
*Neglect/Abuse Screening Last Done: 04/02/24 15:59
ED- Fall Risk Assessment Last Done: 04/03/24 06:59
*ED COVID-19 Vaccine History Last Done: 04/03/24 06:59
*Nursing Disposition Last Done: 04/03/24 06:59
ED-Musculoskeletal Assessment Last Done: 04/02/24 16:31
Discharge Date and Time
Discharge Date/Time: 04/03/24 07:29
[2024-04-02 22:28] VITALS: BP 150/80
[2024-04-02] MEDS: ATIVAN 2 MG IV (22:41)
[2024-04-03] VITALS (25 sets, daily range): BP systolic 80–166; BP diastolic 67–103
--- NOTE | 2024-04-03 01:26 | W.PN.UPDATE ---
Update Note
Progress Note Update
Full consult to follow in am.
THis is an 88 yo F that I was informed of at ~9 pm of this 88 yo F with hx of mild dementia, living at [facility], wheelchair bound for past 9 months who presented with acute onset of back pain, abdominal pain. Also reported to have urinary retention and
weakness of legs.
CT thoracolumbar spine performed which did not demonstrate fractures. Emergent MRI ultimately done demonstrates soft tissue lesion spanning T10-11 to L2 with neural compression.
Discussion held at 1 am with patient's son Haroldo informing him of results and surgical indications and expectations for decompression. MRI report from overnight noncontrast MRI recommended contrast enhanced MRI.
Discussed need for this to elucidate whether this was neoplastic vs infectious but also discussed risks/benefits, pros/cons of proceeding with surgery emergently overnight vs after contrast MRI vs not proceeding with surgery at all.
Son expressed hesitation in committing to surgery for mother at time of conversation and wished to proceed with contrast enhanced MRI in am.
ENtire length of telephone conversation ~25 min at approximately 1 am.
Attempts made to document/complete documentation of this note at ~1:30 am, but computer was malfunctional due to global [employer] outage, making it unable to document this note at that time.
--- NOTE | 2024-04-03 01:36 | HPS.HSE ---
Family Physician
-
Family Physician: Jose Betancourt
Chief Complaint
-
back pain
History of Present Illness
Ms. Adia Lozoya is a 88 yo woman with hx HTN, CKD III, HLD, anxiety/depression, dementia presents tot he ER with sudden onset severe lower back pain.
Patient somnolent on my interview (2AM).
Per ER note patient without trauma. She was doing well earlier this morning per son. No recent fevers/chills.
Medical History
Past Medical History
Past Medical History: Reports Other (hypertension, CKD, hypercholesterolemia, small bowel obstruction)
Past Surgical History: Reports None
Social History
Tobacco: Non-smoker
Alcohol: None
Drug: None
Family History
Family History: Not pertinent
Allergies / Home Medications
Allergies reflects when Allergies were last updated in [facility] [employer] [facility] [employer].
Home Medications with original date entered in [facility] [facility] [employer]
Allergy/Medication List:
Allergies
Allergy/AdvReac Type Severity Reaction Status Date / Time
Penicillins Allergy Swelling Verified 04/02/24 15:59
Home Medications
sertraline 25 mg tablet 75 mg PO DAILY Depression ##0 12/07/22
acetaminophen 325 mg tablet 650 mg PO Q6HPRN PRN mild pain/fever 04/02/24
balsam lety-zinc oxide topical ointment 1 ea topical TID 04/02/24
bisacodyl 10 mg rectal suppository (Dulcolax (bisacodyl)) 10 mg IN DAILYPRN PRN if no bm x 3 days 04/02/24
magnesium hydroxide 400 mg/5 mL oral suspension (Milk of Magnesia) 30 ml PO DAILYPRN PRN constipation 04/02/24
melatonin 3 mg tablet 6 mg PO HS 04/02/24
metoprolol succinate 50 mg tablet,extended release 24 hr 50 mg PO DAILY 04/02/24
nifedipine 60 mg tablet,extended release 24 hr 60 mg PO DAILY 04/02/24
polyethylene glycol 3350 17 gram oral powder packet 17 grams PO DAILYPRN PRN constipation 04/02/24
risperidone 0.25 mg tablet 0.25 mg PO QPM 04/02/24
risperidone 0.25 mg tablet 0.5 mg PO DAILY 04/02/24
sennosides 8.6 mg-docusate sodium 50 mg tablet (Senna Plus) 1 tab-cap PO BID 04/02/24
sodium phosphates 19 gram-7 gram/118 mL enema (Fleet Enema) 118 ml IN DAILYPRN PRN if no bm x 4 days 04/02/24
Review of Systems
-
History Source: Patient
A 12 point ROS was completed and negative except as noted: Yes
Physical Exam
Vital Signs
Vital Signs
Temp Pulse Resp BP Pulse Ox
98.7 F 82 21 159/79 90
04/02/24 15:59 04/02/24 22:45 04/02/24 22:45 04/03/24 01:00 04/03/24 01:15
Physical Exam
General: No Apparent Distress and Other (sleeping peacefully)
HEENT: PERRLA
Respiratory: Clear
Cardiac: S1/S2 and Regular Rhythm
GI: Soft and Non Tender
Musculoskeletal: No Edema
Neuro: Other (sedated on my exam. per ER note 0 strength LE)
Psych: Calm
Laboratory Results
-
04/02/24 16:20
04/02/24 16:20
Laboratory Results
Total Bilirubin 0.5 mg/dl (0.2-1.3) 04/02/24 16:20
AST 22 U/L (14-36) 04/02/24 16:20
ALT 12 U/L (0-35) 04/02/24 16:20
Alkaline Phosphatase 117 U/L (38-126) 04/02/24 16:20
Data Reviewed
-
Diagnostic Radiology: Report Reviewed by me
Lab Data: Labs Reviewed by me
Impression/Plan
-
Ms. Adia Lozoya is a 88 yo woman with hx HTN, CKD III, HLD, anxiety/depression, dementia presents to the ER with sudden onset severe lower back pain found to have concern for underlying mass resulting in severe canal stenosis.
Triage VS: T 98.7, P 86, RR 16, BP 197/95, SpO2 92%
LABS: Na 139, K+ 3.3, Cr 1.3, Glucose 118, liver enzymes WNL
MRI Thoracic and Lumbar Spine with concern for mass resulting in severe canal stenosis with severe compression on the conus. Findings concerning for possible underlying malignancy, although infection would remain in differential.
Cauda Equina Syndrome
Concern for soft tissue mass/malignancy
-case discussed with Neurosurgery, Dr. Ham. Dr. Ham spoke to family who would like to pursue intervention/ surgery. Per Dr. Ham, plan to obtain MR thoracic and lumbar spine with contrast in AM to decide on surgery. Surgery can happen at ,
confirmed no need to transfer to [facility] overnight.
-IVF overnight
-pain control
-keep NPO
Essential HTN
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
Dementia
-REGIONAL MARKETING MANAGER Risperidone
Depression/Anxiety
-REGIONAL MARKETING MANAGER Sertraline
DVT PPx SCD
DNR - based on wishes from prior admissions
76 minutes spent on patient evaluation, medical decision, coordination of care
[2024-04-03] MEDS: NSS 1000 IV ×3 (03:28→17:35)
[2024-04-03] MEDS: DILAUDID 0.5 MG IV ×3 (03:29→21:31)
[2024-04-03 06:28] LABS: ALT (SGPT) 12 U/L (0-35); AST (SGOT) 21 U/L (14-36); Albumin 3.7 g/dl (3.5-5.0); Alkaline Phosphatase 88 U/L (38-126); Blood Urea Nitrogen 26 mg/dl (7-17); Calcium 8.8 mg/dl (8.4-10.2); Carbon Dioxide 28 mmol/L (22-30); Chloride 106 mmol/L (98-107); Estimated Creatinine Clearance 42 ml/min; Glucose 120 mg/dl (70-99); Magnesium 1.6 mg/dl (1.6-2.3); Potassium 3.6 mmol/L (3.5-5.1); Sodium 140 mmol/L (135-145); Total Bilirubin 0.4 mg/dl (0.2-1.3); Total Protein 6.2 g/dl (6.3-8.2); eGFR 48.33
[2024-04-03 06:52] LABS: % Basophils 0.4 % (0-2); % Eosinophils 1.3 % (0-6); % Immature Granulocytes 0.6 % (0-0.5); % Neutrophils 81.7 % (42.2-75.2); Absolute Eosinophils 0.1 10^3/uL (0-0.7); Absolute Immature Granulocytes 0.1 10^3/uL (0-0.05); Absolute Monocytes 0.6 10^3/uL (0.1-0.6); Absolute Neutrophils 8.4 10^3/uL (1.4-6.5); Hematocrit 37.9 % (37.0-47.0); Hemoglobin 13.1 g/dL (12.0-16.0); Mean Corp Hgb Conc. 34.6 g/dL (33.0-37.0); Mean Corpuscular Hgb 30.1 pg (27.0-31.0); Mean Corpuscular Volume 87.1 fL (81.0-99.0); Mean Platelet Volume 10.9 fL (7.4-10.4); Nucleated Red Blood Cells % 0 %; Platelet Count 202 10^3/uL (130-400); Red Blood Cell Count 4.35 10^6/uL (4.20-5.40); Red Cell Dist. Width 13.6 % (11.5-14.5); White Blood Cell Count 10.3 10^3/uL (4.8-10.8)
--- NOTE | 2024-04-03 08:00 | PTCARENOTE ---
Pt received from the [facility] stretcher. Transport was w/o incident. Pt is Awake, alert, oriented X2, Forgetfulness noted, as Pt not able to answer questions regarding her chief complaints, reason for seeking medical attention and living status. VSS,
Pt is afebrile. Pt denies pain when not moving, c/o pain with movement of right leg. Unable to rate pain. Pt instructed on plan of care. Will need to reinforce instructions throughout the shift d/t cognitive status. Call de leon is within reach.
--- NOTE | 2024-04-03 09:07 | W.PN.HOSP.TC ---
Addendum entered and electronically signed by Claire Trujillo MD 04/03/24 15:09:
88 y/o with back pain. Patient is nonambulatory at baseline and has incontinence also. She wears diapers acute epidural abscess note and central canal stenosis T10-L2 with severe spinal compression hemorrhage acute epidural I do not know
thisewith severe spinal cord compressionr hemorrhagem acute epiduralE
I personally performed a history and physical exam of the patient and discussed management with the resident. I reviewed the resident's note and agree with the documented findings and plan of care HPI/CC Except change
Change in documentation
Seen earlier. Late documentation
CVS: S1-S2 normal
Chest: CTA B/L
Abdomen: Soft, NT / Bowel sounds present
Extremities: No edema, normal pulses
BOOKBINDING MACHINE OPERATOR: 0/5 strength B/L LE, Sensation intact, No perineal anesthesia. Normal rectal tone
MRI C Spine- Moderate multilevel discogenic degenerative disease with multilevel disc-osteophyte complexes. Moderate to severe bilateral cervical facet joint arthrosis.Mild spinal cord compression and central canal stenosis at C3/C4 and C4/C5.
MRI T Spine- 5.7 mm anterolisthesis of T2 on T3 with mild ventral spinal cord compression at the T2/T3 level. Severe discogenic degenerative disease at T2/T3.Moderately exaggerated thoracic kyphosis.
Interval increase in a moderate amount of enhancing subpleural airspace consolidation in the lower lobes of both lungs. Diagnostic possibilities are (1) dependent atelectasis or (2) bilateral lower lobe pneumonia (possibly secondary to aspiration
pneumonitis).
MRI L SPine-EXTENSIVE ACUTE EPIDURAL HEMORRHAGE throughout the posterior and right-sided epidural space extending from T10 to L2 causing SEVERE SPINAL CORD COMPRESSION and CENTRAL CANAL STENOSIS (greatest at the L1 level). Severe discogenic
degenerative disease at L3/L4 and L5/S1. Moderate discogenic degenerative disease at the other lumbar levels.
Moderate fluid signal intensity in the right side of the L3/L4 intervertebral disc with adjacent mild enhancing endplate bone marrow edema and right paraspinal muscle edema which is likely secondary to degenerative disease. Acute infectious discitis
is considered less likely.Severe central canal stenosis at L3/L4.Severe bilateral neural foraminal narrowing at L5/S1.Acute bilateral sacral insufficiency fractures.Severe right renal atrophy.
# Acute epidural hemorrhage T10-L2 severe spinal cord compression and central canal stenosis
Keep NPO
Patient is for OR today
No trauma reported. Unclear cause for epidural hemorrhage.
#Atelectasis- IS. Speech eval to rule out aspiration
#Urinary retention- Has a Goodman
#Hypokalemia - Resolved
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
#Dementia-LINSEED OIL REFINER Risperidone-At risk for Post op delirium
#CKD Stage 3
#Depression/Anxiety-LINSEED OIL REFINER Sertraline
# Low grade diverticulitis- Levaquin and Flagyl
#Scoliosis
#DVT PPx SCD
#DNR - Per D/W SON
D/W Neuro surgery
D/W Son at bed side
Time spent over 50 min
Original Note:
Today's Communication/Plan
-
Emergency surgery today for extensive epidural hematoma
Assessment / Plan
Assessment / Plan
#Cauda Equina Syndrome
Concern for soft tissue mass/malignancy
- MRI LS : EXTENSIVE ACUTE EPIDURAL HEMORRHAGE throughout the posterior and right-sided epidural space extending from T10 to L2 causing SEVERE SPINAL CORD COMPRESSION and CENTRAL CANAL STENOSIS (greatest at the L1 level).
- Family would like to pursue intervention/ surgery.
- Per Neurosurgery surgery planned for today.
- continue IVF
- pain control
- keep NPO
#Essential HTN
-Metoprolol, Nifedipine
#Dementia
-LINSEED OIL REFINER Risperidone
#Depression/Anxiety
-Sertraline
# CKD Stage 3- Creat 1.1, GFR 48.3
# Hyperlipidemia
DVT PPx SCD
DNR - based on wishes from prior admissions
Anticipated Discharge: Within 24 hours
Subjective/Interval History
-
Date of Service: April 03, 2024
Objective Data
-
Labs:
Laboratory Results
04/03/24
06:04
WBC 10.3
Hgb 13.1
Hct 37.9
Plt Count 202
Sodium 140
Potassium 3.6
Chloride 106
Carbon Dioxide 28
BUN 26 H
Creatinine 1.1 H
Glucose 120 H
Calcium 8.8
Total Bilirubin 0.4
AST 21
ALT 12
Alkaline Phosphatase 88
Vital Signs:
Vital Signs
Temp Pulse Resp BP Pulse Ox
97.7 F 80 16 149/88 94
04/03/24 08:00 04/03/24 08:00 04/03/24 08:00 04/03/24 08:00 04/03/24 08:00
Review of Systems
-
History Source: Patient
Constitutional: Denies Fever
Cardiac: Denies Chest Pain
Abdomen/GI: Reports Abdominal Pain; Denies Nausea or Vomiting
Musculoskeletal: Reports Other (low back pain.)
Neuro: Reports Weakness (b/l LE)
Hematologic / Lymphatic: Denies Bleeding
Physical Exam
-
General: Well Developed and Well Nourished
HEENT: Normocephalic and Atraumatic
Respiratory: Clear to Auscultation
Cardiac: Regular Rhythm
GI: Soft and Nontender
Skin: Warm and Dry
Neuro: Awake, Alert, Central Nerve's Intact, No Sensory Deficits and Other (B/L LE weakness, normal tone); Negative Oriented or Slurred Speech
Psych: Calm
Data Reviewed
-
CT Scan: Report Reviewed by me, Discussed with Physician and Discussed with Patient
MRI: Report Reviewed by me, Discussed with Physician and Discussed with Patient
Labs: Labs Reviewed by me, Discussed with Physician and Discussed with Patient
[2024-04-03] MEDS: PROCARDIA XL (EXTENDED RELEASE) 60 MG PO (09:35)
[2024-04-03] MEDS: RISPERDAL 0.5 MG PO (09:36)
[2024-04-03] MEDS: ZOLOFT 75 MG PO (09:36)
[2024-04-03] MEDS: TOPROL XL 50 MG PO (09:36)
--- NOTE | 2024-04-03 12:46 | CON.NS ---
Consultation
-
Date/Time Consultation Performed: 04/03/2024; 12:10 pm
Performing Provider: Fatoumata
Chief Complaint
History of Present Illness
This is a neurosurgical consultation on a 88 yo F [place] resident who presented with acute onset of low back and lower abdominal pain at approximately 4 pm yesterday. She presented to ED where CT performed did not demonstrate any obvious pathology.
Patient noted to have LE weakness/immobility and also urinary retention.
NO hx of trauma or being on anticoagulants or antiplatelet agents.
ED contacted me and asked requiring need for emergent MRI based on symptomatology to which I recommended getting emergent MRI given hx.
AT baseline, patient is non ambulatory per son and he is not sure whether she is chronically incontinent but does admit she wears diapers.
MRI results relayed to me at approximately 1 am. AT that time, I called patients son to review Noncontrast MRI results demonstrating soft tissue lesion at thoracolumbar jxn with neural compression. I discussed differential diagnosis and indications
for surgical decompression.
MRI report from radiology also indicating obtaining contrast enhanced MRI for better delineation of lesion. I did explain to son that it will not likely change my recommendations for surgical decompression but that may provide noninvasive
diagnostic information.
Patient had MRI with contrast at approximately 11 am and report available approximately 11:15 am which demonstrates acute epidural hematoma, I called patient's son at approximately that time to discuss results and surgical decompression.
He wished to discuss in person prior to committing.
I saw and evaluated patient in room at approximately 12:10 pm and discussed with patient's son Haroldo at bedside and other son Jayesh via telephone.
Ultimately we discussing MR findings, her current neurological exam, and indications for surgical decompression and expectations postoperatively.
Family wishes to proceed with surgery understanding that this may not necessarily improve her symptoms but are willing to give it a chance.
Patient made an emergent case immediately thereafter.
Review of Systems
-
Unable to obtain full review of systems at this time due to: Dementia
Medication and Allergies
Home Medications
Home Medications
�Medication �Instructions �Recorded
sertraline 25 mg tablet 75 mg PO DAILY Depression ##0 12/07/22
acetaminophen 325 mg tablet 650 mg PO Q6HPRN PRN mild 04/02/24
pain/fever
hoda lety-zinc oxide topical 1 ea topical TID 04/02/24
ointment
bisacodyl 10 mg rectal suppository [address] DAILYPRN PRN if no bm x 3 04/02/24
(Dulcolax (bisacodyl)) days
magnesium hydroxide 400 mg/5 mL 30 ml PO DAILYPRN PRN constipation 04/02/24
oral suspension (Milk of Magnesia)
melatonin 3 mg tablet 6 mg PO HS 04/02/24
metoprolol succinate 50 mg 50 mg PO DAILY 04/02/24
tablet,extended release 24 hr
nifedipine 60 mg tablet,extended 60 mg PO DAILY 04/02/24
release 24 hr
polyethylene glycol 3350 17 gram 17 grams PO DAILYPRN PRN 04/02/24
oral powder packet constipation
risperidone 0.25 mg tablet 0.25 mg PO QPM 04/02/24
risperidone 0.25 mg tablet 0.5 mg PO DAILY 04/02/24
sennosides 8.6 mg-docusate sodium 1 tab-cap PO BID 04/02/24
50 mg tablet (Senna Plus)
sodium phosphates 19 gram-[address] DAILYPRN PRN if no bm x 04/02/24
gram/118 mL enema (Fleet Enema) 4 days
Allergies
Allergies
Allergy/AdvReac Type Severity Reaction Status Date / Time
Penicillins Allergy Swelling Verified 04/02/24 15:59
Physical Exam
-
Exam:
awake alert, Mexican as secondary language.
Head AT, NC
MOtor: full strength in arms.
Legs: 0/5 strength in legs diffusely, but able to sense light touch and pain.
Goodman catheter in place
Breathing nonlabored.
Abdomen: nondistended.
Extremties warm, non edematous.
Exams: MR Lumbar With Contrast; MR Thoracic Spine W Contrast
PROCEDURE: MR Thoracic Spine W and Without Contrast, MR Lumbar With and Without Contrast
CLINICAL INDICATION: Sudden onset of severe thoracic and lumbar back pain. Urinary retention. Bilateral lower extremity motor deficit. Cauda equina syndrome.
TECHNIQUE: An MRI examination of the thoracic spine was performed with and without intravenous contrast on a 1.5 Julia magnet. Sagittal T2, sagittal T1, and axial T1-weighted imaging sequences were obtained prior to the administration of intravenous
contrast. Following the intravenous administration of 15 mL Clariscan gadolinium contrast material, sagittal T1 fat-suppressed and axial T1-weighted imaging sequences were obtained.
An MRI examination of the lumbar spine was performed with and without intravenous contrast on a 1.5 Julia magnet. Sagittal T1 and axial T1-weighted images were obtained prior to the administration of intravenous contrast. Following the intravenous
administration of 15 mL Clariscan gadolinium contrast material, sagittal T1 fat-suppressed, sagittal T1, and axial T1-weighted imaging sequences were obtained.
COMPARISON: Comparison is made with prior MRI examinations of the thoracic and lumbar spine performed 04/02/2024, a CT examination of the abdomen and pelvis performed 04/02/2024, and a CT examination of the abdomen and pelvis performed 03/29/2022.
FINDINGS:
CERVICAL SPINE:
There is mild cerebellar volume loss.
There is an exaggerated cervical lordosis. There is moderate loss of intervertebral disc space height and small to moderate-sized vertebral body endplate osteophytes at C3/C4, C4/C5, C5/C6, and C6/C7. There is moderate to severe multilevel bilateral
cervical facet joint arthrosis. There are disc herniations and ligamentum flavum infolding at C3/C4 and C4/C5 causing mild spinal cord compression and central canal stenosis. There is mild ventral spinal cord compression at C5/C6 and C6/C7 without
overall central canal stenosis.
THORACIC SPINE:
There is a moderately exaggerated upper thoracic kyphosis. There is 3 mm anterolisthesis of T1 on T2 and 5.7 mm anterolisthesis of T2 on T3.
The thoracic vertebral bodies are normal in height without evidence for acute fracture. There are large hemangiomas in the T3 and T9 vertebral bodies. There is severe loss of intervertebral disc space height at T2/T3. There is moderate loss of
intervertebral disc space height at T10/T11. There is mild disc desiccation and loss of intervertebral disc space height at T3/T4 through T9/T10.
The posterior superior endplate of T3 causes mild ventral spinal cord compression. There is no overall central canal stenosis. There is moderate left-sided facet joint arthrosis at T2/T3 causing moderate left neural foraminal narrowing.
There is severe right renal cortical atrophy. There are moderate number of bilateral renal cysts. There is a small sliding-type hiatal hernia. There is a moderate to large amount of enhancing subpleural airspace consolidation in the lower lobes of
both lungs which has increased since 04/02/2024. There is mild left to right mediastinal shift. There is moderate diffuse paraspinal muscle atrophy.
LUMBAR SPINE:
The conus medullaris terminates at the L1 level.
There is a large irregular shaped rim-enhancing epidural mass located in the posterior and right lateral epidural space of the lower thoracic and upper lumbar spine measuring 11.8 cm in length extending from the T10-L2 levels. The mass measures up
to 1.9 x 1.9 cm in greatest AP and transverse dimension in the right side of the epidural space at the L1 level. The mass demonstrates hyperintense T1 signal intensity precontrast and does not appear to demonstrate central enhancement, but only a
thin smooth rim of peripheral enhancement. The mass appears to be confined to the epidural space. The signal characteristics and enhancement pattern of the mass are most consistent with an extensive acute epidural hemorrhage. There is severe mass
effect and extrinsic compression on the conus medullaris at the L1 level. There is moderate compression and displacement of the lower thoracic spinal cord at the T11 level.
There is a mild left convex curvature of the lower lumbar spine. There are mild retrolistheses of T11 on T12, T12 on L1, and L1 on L2. There are grade 1 anterolistheses of bowel 10/17/2002 and L4 on L5. The lumbar vertebral bodies are normal in height
without evidence for fracture.
There is severe loss of intervertebral disc space height along the right side of L3/L4 with fluid signal intensity in the intervertebral disc and a mild amount of adjacent acute enhancing endplate bone marrow edema. There is mild to moderate
adjacent right paraspinal muscle edema in the right psoas muscle. There is severe loss of intervertebral disc space height along the left side of L5/S1 with large vertebral body endplate osteophytes. There is mild to moderate loss of intervertebral
disc space height at T11/T12, T12/L1, L1/L2, and L2/L3. There is mild disc desiccation at L4/L5.
Evaluation of the individual levels demonstrates:
At T9/T10: There is a tiny central disc herniation. There is no central canal stenosis or neural foraminal narrowing.
At T10/T11: There is no disc herniation. There is epidural hemorrhage in the right posterolateral epidural space causing mild spinal cord compression and central canal stenosis. There is no neural foraminal narrowing.
At T11/T12: There is a small left subarticular-foraminal disc herniation. There is mild bilateral facet joint arthrosis. There is a large amount of acute epidural hemorrhage in the posterior epidural space causing moderate spinal cord compression
and severe central canal stenosis. There is mild bilateral neural foraminal narrowing.
At T12/L1: There is a small diffuse disc bulge. There is mild to moderate bilateral facet joint arthrosis. There is a large amount of acute epidural hemorrhage in the right posterolateral epidural space causing severe central canal stenosis and
spinal cord compression. The spinal cord is displaced anteriorly into the left. There is moderate left neural foraminal narrowing. There is no right neural foraminal narrowing.
There is a large amount of acute epidural hemorrhage in the right side of the epidural space at the level of the L1 vertebral body measuring 1.9 x 1.9 cm in AP and transverse dimensions causing severe spinal cord compression and central canal
stenosis.
At L1/L2: There is a large diffuse disc bulge. There is mild to moderate bilateral facet joint arthrosis. There is a large amount of acute epidural hemorrhage in the posterior epidural space causing severe central canal stenosis. There is moderate
bilateral neural foraminal narrowing.
At L2/L3: There is 5.9 mm grade 1 anterolisthesis secondary to severe bilateral facet joint arthrosis. The posterior superior endplate of L3 protrudes into the anterior epidural space and there is acute epidural hemorrhage in the posterior epidural
space causing severe central canal stenosis. There is mild bilateral neural foraminal narrowing.
At L3/L4: There is a small diffuse disc bulge. There is moderate to severe right and mild to moderate left facet joint arthrosis. There is severe right lateral recess stenosis and mild central canal stenosis. There is moderate right neural foraminal
narrowing. There is no left neural foraminal narrowing.
At L4/L5: There is 8 mm grade 1 anterolisthesis secondary to severe bilateral facet joint arthrosis. There is uncovering of the posterior margin of the intervertebral disc. There is a small left foraminal disc herniation. There is moderate central
canal stenosis. There is moderate bilateral neural foraminal narrowing.
At L5/S1: There is a small diffuse disc bulge. There is mild bilateral facet joint arthrosis. There is no central canal stenosis. There is severe bilateral neural foraminal narrowing and exiting L5 nerve root impingement.
There are bands of enhancing low T1 signal in both sides of the sacrum consistent with acute bilateral sacral insufficiency fractures. There is moderate to severe diffuse posterior paraspinal muscle atrophy. There is a moderate to large amount of
edema in the posterior subcutaneous fat of the lower back.
There is very severe diverticulosis in the sigmoid colon. There is severe calcific atherosclerotic plaque in the abdominal aorta. There is severe right renal cortical atrophy. There is no hydronephrosis in either kidney. There are a moderate number
of bilateral renal cysts. Most of the cysts appear to be simple cysts, but some of the cysts are complex hemorrhagic cysts or partially calcified cyst demonstrating low T2 signal.
IMPRESSION:
CERVICAL SPINE:
1. Moderate multilevel discogenic degenerative disease with multilevel disc-osteophyte complexes. Moderate to severe bilateral cervical facet joint arthrosis.
2. Mild spinal cord compression and central canal stenosis at C3/C4 and C4/C5.
THORACIC SPINE:
1. 5.7 mm anterolisthesis of T2 on T3 with mild ventral spinal cord compression at the T2/T3 level. Severe discogenic degenerative disease at T2/T3.
2. Moderately exaggerated thoracic kyphosis.
3. Interval increase in a moderate amount of enhancing subpleural airspace consolidation in the lower lobes of both lungs. Diagnostic possibilities are (1) dependent atelectasis or (2) bilateral lower lobe pneumonia (possibly secondary to
aspiration pneumonitis).
LUMBAR SPINE:
1. EXTENSIVE ACUTE EPIDURAL HEMORRHAGE throughout the posterior and right-sided epidural space extending from T10 to L2 causing SEVERE SPINAL CORD COMPRESSION and CENTRAL CANAL STENOSIS (greatest at the L1 level).
2. Severe discogenic degenerative disease at L3/L4 and L5/S1. Moderate discogenic degenerative disease at the other lumbar levels.
3. Moderate fluid signal intensity in the right side of the L3/L4 intervertebral disc with adjacent mild enhancing endplate bone marrow edema and right paraspinal muscle edema which is likely secondary to degenerative disease. Acute infectious
discitis is considered less likely.
4. Severe central canal stenosis at L3/L4.
5. Severe bilateral neural foraminal narrowing at L5/S1.
6. Acute bilateral sacral insufficiency fractures.
7. Severe right renal atrophy.
Electronically signed by Carlos Lazar MD, 04/03/2024 11:18 AM
Problems
-
Problem Status Onset Code
Spinal cord lesion G95.9
Paralysis G83.9
Assessment / Plan
-
88 yo F presents with low back pain, abd pain and acute onset of LE weakness, and urinary retention. MRI thoracolumbar spine demonstrates soft tissue lesion from T10-L2 highly suspicious for epidural hematoma.
NO hx of trauma or on blood thinners.
Platelet count normal
Extensive multiple (3) discussions held with patients son. They express understanding of indications, expectations, risks and benefits and alterative associated with surgery.
Will proceed with T10-L2 laminectomy for decompression.
Consents signed.
[2024-04-03] MEDS: VANCOCIN IV (13:45)
[2024-04-03 15:06] LABS: APTT 28.2 Sec (23.4-35.0)
--- NOTE | 2024-04-03 15:46 | CM ---
CM spoke with patient's son/primary contact, Haroldo via phone #[phone]; initial assessment completed
Pharmacy verified: [address]
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
PLOF: son reported that mother has Dementia; is confused;
ambulated a few steps; was out of bed in her WC most of the day; utilized her Wheelchair to get around facility;
needs assistance with personal care;
she was able to feed self; and
usually toilets in bathroom with assistance
Plan: return to [facility] when medically stable; will need ambulance transport
--- NOTE | 2024-04-03 16:14 | OR.RPT ---
Operative Report
Operative Report
Date of operation: 04/03/2024
Surgeon: Cynthia Ham MD
Procedure:
1. T10-L2 decompressive laminectomy for evacuation of epidural hematoma
2. Use of an interpretation of intraoperative fluoroscopy
Preoperative diagnosis: Epidural soft tissue lesion, cord compression, spinal neural compression
Postoperative diagnosis: Epidural hematoma
Warehouse Driver: KEVAN Sharma
Anesthesiologist:
Types of anesthesia:
1. General
2. Local
Intraoperative findings: Extensive epidural hematoma most thick at L1-L2, extending along the right dorsolateral and ventral aspect of thecal sac. Dorsal epidural hematoma extended up to the level of T10. No obvious bleeding source was identified.
Specimens: A small piece of clot was sent to pathology for permanent specimen
Drains: Myron-Lan drain in subfascial space
Estimated blood loss: 125 mL
Complications: None
Disposition: PACU then floor
Indications for the procedure: This is an 88-year-old female that presented with acute onset of lumbar back pain, with radiating abdominal pain.
She presented to the emergency room, and a subsequent CT scan of the abdomen, and pelvis which was reportedly negative. She was noted to have bilateral lower extremity weakness, urinary retention. Therefore, discussion was held with the emergency
room and myself regarding indications for MRI. Patient underwent an emergent MRI, which was completed and resulted at 1 AM on 04/03/2024. There was evidence of a extensive soft tissue lesion from T10-L2. It was recommended the patient would
benefit from an MRI with contrast. Extensive discussion was held with the patient's son regarding MRI findings, ordering MRI with contrast, patient's neurological examination, and indications for surgery. Ultimately, decision was made to proceed
with MRI with contrast in the a.m. of 04/03/2024. Patient had an MRI with contrast which demonstrated epidural hematoma and less likely neoplasm or infection. Multiple discussions were held again with the patient's sons, who ultimately wished for
the patient to proceed with surgery. Discussion was held regarding indications for the procedure, alternatives, potential recuperative courses, risks, benefits, associated with surgical intervention versus nonsurgical intervention, and potential
expectations for neurological recovery for the patient. The patient's son expressed understanding of this and the patient's son, Haroldo, wish to proceed. Consents were signed in the preoperative holding area.
Procedure in detail:
The patient is brought to the operating room, and induced under general endotracheal anesthesia. Patient was then carefully positioned for the somatizations and prone position onto the operating room table. Special care was taken to ensure that
all pressure points, including eyes, chin, bilateral neck, knees, chest, groin appropriately padded. Attempt entry was placed over the gluteal fold. The fluoroscopic C-arm was brought in and the T10-L3 levels were marked out. A midline incision
was marked out over the spine. This was then prepped and draped in the usual standard fashion. After appropriate timeout was performed, local anesthetic was then infiltrated to the marked incision. Using a 10 blade, incision was made through the
skin. Dissection was then carried down through the subcutaneous tissues to the thoracodorsal fascia. Using 4 electrocautery, fascia opening was made along bilateral aspects of the spinous processes. Subperiosteal dissection was then carried out
over the spinous processes and lamina. 2 self-retaining cerebellar retractors were then placed to hold the musculature side. Localization was then performed using lateral fluoroscopy. At this point after confirming appropriate levels, a [place]ell
rongeur was utilized to remove the spinous processes from the inferior aspect of T10 down to the superior aspect of L3. The lamina was then shaved thinned using the [place] drill. Once ligamentum flavum was encountered, 2, 3, and 4 mm Kerrison
punch rongeurs were utilized to complete the laminectomy and remove the thickened ligamentum flavum. Immediately under this, there was acute hematoma note did. This was then irrigated dissected off of the dorsal lateral aspect of the thecal sacs
using a [place] 4 dissector, [place] 1 dissector. We continued her decompression with rostrally and caudally until there is no evidence of additional hematoma. No obvious bleeding source was noted. There was a small portion of clot in the right
L1-L2 lateral gutter, that was evacuated, and sent off for pathology for permanent specimen. Once the thecal sac was clearly visualized, and inspection of the lateral gutters did not demonstrate any obvious evidence of residual hematoma, I then
elected to close. The wound was thoroughly irrigated with Betadine irrigation. Meticulous hemostasis was achieved using Bovie electrocautery, bipolar cautery, Gelfoam soaked in thrombin, Surgiflo hemostatic material. Thin piece of Gelfoam soaked
in thrombin was placed over the exposed thecal sac. Additional local anesthetic was infiltrated subfascial musculature. Vancomycin powder was then sprinkled into the subfascial space. The wound was closed reapproximating the fascia using
interrupted 0 Vicryl sutures. The subcutaneous fatty layer was then reapproximated using interrupted inverted 2-0 Vicryl sutures. The subdermal and epidermal layers were then reapproximated using interrupted inverted 3-0 Vicryl sutures. The skin
was then reapproximated using a skin stapler. A 7 Croatian Myron-Lan drain was placed in the subfascial space, and the drain exit site was secured using a 3-0 nylon suture. The wound was then dressed using Xeroform, Telfa, Tegaderm, and Medipore
tape. No complications were encountered. Patient was then carefully positioned from the prone position to the supine position extubated. All needle sponge counts were correct at the end of procedure. My stylist assistant, KEVAN Eric, was necessary for all
portions of procedure, including positioning, dissection, retraction, irrigation, suture management.
[2024-04-03] MEDS: DILAUDID 0.25 MG IV ×3 (17:37→18:21)
[2024-04-03] MEDS: LEVAQUIN 50 IV (17:48)
--- NOTE | 2024-04-03 18:50 | PTCARENOTE ---
Patient returned from PACU with IVF infusing, on 2L O2, no complaints of pain at this time, at bedside DEPUTY PROSECUTING ATTORNEY reported that patient unable to move b/l legs but acknowledges feeling when touched, VSS, son at bedside.
[2024-04-03] MEDS: SENOKOT 17.2 MG PO (21:28)
[2024-04-03] MEDS: HEPARIN 5000 UNITS SC (21:29)
[2024-04-03] MEDS: RISPERDAL 0.25 MG PO (21:29)
[2024-04-03] MEDS: FLAGYL 500 MG 100 IV (21:29)
[2024-04-03] MEDS: COLACE 100 MG PO (21:29)
[2024-04-03] MEDS: MELATONIN 6 MG PO (21:30)
[2024-04-04] VITALS (8 sets, daily range): BP systolic 121–140; BP diastolic 53–80; PULSE 76; O2SAT 93
[2024-04-04] MEDS: VANCOCIN 200 IV ×2 (01:57→12:45)
--- NOTE | 2024-04-04 05:00 | PTCARENOTE ---
Continued to assess patient's neurological ability, patient continues to acknowledge feeling in b/l legs when touched at bedside, she also continues to not move RLE, but she did have trace movement in LLE on last assessment.
[2024-04-04] MEDS: NSS 1000 IV (05:22)
[2024-04-04] MEDS: HEPARIN 5000 UNITS SC ×3 (05:23→21:49)
[2024-04-04] MEDS: FLAGYL 500 MG 100 IV ×3 (05:23→21:49)
[2024-04-04] MEDS: DILAUDID 0.5 MG IV ×3 (06:27→18:49)
--- NOTE | 2024-04-04 06:43 | W.PN.HOSP.TC ---
Addendum entered and electronically signed by Claire Trujillo MD 04/04/24 13:30:
personally performed a history and physical exam of the patient and discussed management with the resident. I reviewed the resident's note and agree with the documented findings and plan of care HPI/CC Except change
Change in documentation
Seen earlier. Late documentation
CVS: S1-S2 normal
Chest: CTA B/L
Abdomen: Soft, NT / Bowel sounds present
Extremities: No edema
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
Back with dressing- mild shadowing
# Acute epidural hemorrhage T10-L2 severe spinal cord compression and central canal stenosis
S/P T10-L2 decompressive laminectomy for evacuation of epidural hematoma by 04/03/24
No trauma reported. Unclear cause for epidural hemorrhage.
Pathology sent-pending
Not much improvement in strength noted so far except patient can flicker the toes. Pain is better
She did not work much with physical therapy today
#Atelectasis- IS. Speech eval to rule out aspiration
#Urinary retention- Has a Goodman
#Hypokalemia - Resolved
#Essential HTN-COMMISSARY REPRESENTATIVE Metoprolol, Nifedipine
#Dementia-COMMISSARY REPRESENTATIVE Risperidone-At risk for Post op delirium
#CKD Stage 3
#Depression/Anxiety-COMMISSARY REPRESENTATIVE Sertraline
#Low grade diverticulitis- Levaquin and Flagyl
#Scoliosis
#DVT PPx SCD
#DNR - Per D/W SON
D/W Neuro surgery
D/W RN
D/W Son at bed side
Original Note:
Today's Communication/Plan
-
- pending recs from neurosurgery
- continue abx, IVF
- started regular diet s/p surgery
Assessment / Plan
Assessment / Plan
# Acute epidural hemorrhage T10-L2 with severe spinal cord compression and central canal stenosis
- MRI LS : EXTENSIVE ACUTE EPIDURAL HEMORRHAGE throughout the posterior and right-sided epidural space extending from T10 to L2 causing SEVERE SPINAL CORD COMPRESSION and CENTRAL CANAL STENOSIS (greatest at the L1 level).
- s/p T10-L2 decompressive laminectomy for evacuation of epidural hematoma 04/03/24
- continue IV fluids
- IV vanco, levaquin and flagyl
- IV dilaudid prn for pain
- regular diet
#Essential HTN
-Metoprolol, Nifedipine
#Depression/Anxiety
-Sertraline
# CKD Stage 3- Creat 1.1, GFR 48.3
# Hyperlipidemia
#Atelectasis- IS. Speech eval to rule out aspiration
#Urinary retention- Goodman b/c of urinary retention
#Hypokalemia - Resolved
#Dementia-COMMISSARY REPRESENTATIVE Risperidone-At risk for Post op delirium
#Low grade diverticulitis- Levaquin and Flagyl
#Scoliosis
#DVT PPx SCD
#DNR - Per D/W SON
Anticipated Discharge: 24 - 48 hours
Subjective/Interval History
-
Date of Service: April 04, 2024
Objective Data
-
Labs:
Laboratory Results
04/04/24
06:00
WBC Pending
Hgb Pending
Hct Pending
Plt Count Pending
Sodium Pending
Potassium Pending
Chloride Pending
Carbon Dioxide Pending
BUN Pending
Creatinine Pending
Glucose Pending
Calcium Pending
Vital Signs:
Vital Signs
Temp Pulse Resp BP Pulse Ox
97.9 F 82 18 124/80 95
04/04/24 03:00 04/04/24 03:00 04/04/24 03:00 04/04/24 03:00 04/03/24 23:00
I&O
04/02/24 04/03/24 04/04/24
06:59 06:59 06:59
Intake Total 1919 / 1919
Output Total 0 / 170
Balance 220 / 220
Review of Systems
-
History Source: Patient
Respiratory: Denies Cough
Cardiac: Denies Chest Pain
Abdomen/GI: Denies Abdominal Pain
Musculoskeletal: Denies Joint Pain
Neuro: Denies Headache
Physical Exam
-
General: Well Developed, Well Nourished and Comfortable
HEENT: Normocephalic
Cardiac: Regular Rhythm
GI: Soft and Nontender
Skin: Warm and Dry
Neuro: Awake, Alert, Oriented, No Sensory Deficits and Other (b/l LE weakness, + b/l toe motor)
Psych: Calm
Data Reviewed
-
MRI: Report Reviewed by me
Labs: Labs Reviewed by me, Discussed with Physician and Discussed with Patient
[2024-04-04] MEDS: ULTRAM 50 MG PO (08:04)
[2024-04-04] MEDS: RISPERDAL 0.5 MG PO (08:05)
[2024-04-04] MEDS: COLACE 100 MG PO ×2 (08:05→20:07)
[2024-04-04] MEDS: PROCARDIA XL (EXTENDED RELEASE) 60 MG PO (08:05)
[2024-04-04] MEDS: SENOKOT 17.2 MG PO ×2 (08:06→20:07)
[2024-04-04] MEDS: TOPROL XL 50 MG PO (08:06)
[2024-04-04] MEDS: ZOLOFT 75 MG PO (08:08)
[2024-04-04 08:17] LABS: % Basophils 0.2 % (0-2); % Eosinophils 0.8 % (0-6); % Immature Granulocytes 0.4 % (0-0.5); % Lymphocytes 6.4 % (20.5-51.1); % Neutrophils 84.2 % (42.2-75.2); Absolute Eosinophils 0.1 10^3/uL (0-0.7); Absolute Lymphocytes 0.7 10^3/uL (1.2-3.4); Absolute Monocytes 0.8 10^3/uL (0.1-0.6); Absolute Neutrophils 8.7 10^3/uL (1.4-6.5); Hematocrit 31.7 % (37.0-47.0); Hemoglobin 10.7 g/dL (12.0-16.0); Mean Corp Hgb Conc. 33.8 g/dL (33.0-37.0); Mean Corpuscular Hgb 30.4 pg (27.0-31.0); Mean Corpuscular Volume 90.1 fL (81.0-99.0); Mean Platelet Volume 10.8 fL (7.4-10.4); Nucleated Red Blood Cells % 0 %; Platelet Count 198 10^3/uL (130-400); Red Blood Cell Count 3.52 10^6/uL (4.20-5.40); Red Cell Dist. Width 13.7 % (11.5-14.5); White Blood Cell Count 10.3 10^3/uL (4.8-10.8)
[2024-04-04 08:27] LABS: Blood Urea Nitrogen 26 mg/dl (7-17); Calcium 8.2 mg/dl (8.4-10.2); Carbon Dioxide 24 mmol/L (22-30); Chloride 107 mmol/L (98-107); Estimated Creatinine Clearance 38 ml/min; Glucose 103 mg/dl (70-99); Sodium 138 mmol/L (135-145); eGFR 43.54
[2024-04-04 09:40] LABS: Iron 41 ug/dl (37-170)
[2024-04-04 09:50] LABS: Percent Saturation 16 % (20-50); Total Iron Binding Capacity 246 ug/dl (265-497)
[2024-04-04 12:26] LABS: Ferritin 53.3 ng/ml (11.1-264.0)
[2024-04-04 12:40] LABS: Vitamin B12 402 pg/ml (239-931)
[2024-04-04] MEDS: TYLENOL 650 MG PO (12:43)
--- NOTE | 2024-04-04 13:25 | PTOTSP ---
Speech Therapy
Presentation: Patient's primary language is Nigerien but is fluent in Japanese as her secondary language. Patient's conversation was short in length but her communication was efficient.
Swallowing Function: Patient was observed with several sips of thin liquids in which patient appeared to tolerate as she did not exhibit any over clinical s/sx of aspiration. Patient refused OPERATOR/ASSISTANT FOREMAN's multiple presentation of solids as she was 'not
hungry' and did not want to 'have to go to the bathroom'. Per RN, patient tolerated her meal tray (regular consistency solids and thin liquids) without any over difficulty and has been tolerating her medications whole with thin liquids. Patient
denied any dysphagia complaints.
Given the above information, recommend continuation of regular consistency solids and thin liquids with the hope to see patient with solids next visit.
Recommendations:
1) Continuation of regular consistency solids and thin liquids
2) Standard aspiration precautions
3) Medications as tolerated
4) PO only when alert
5) Patient may benefit from assistance with PO
Plan: OPERATOR/ASSISTANT FOREMAN will continue to follow; pending hospitalization.
[2024-04-04] MEDS: LEVAQUIN 50 IV (15:51)
[2024-04-04] MEDS: RISPERDAL 0.25 MG PO (15:51)
--- NOTE | 2024-04-04 17:53 | PN.NS ---
Subjective
-
Patient seen and examined. Work with physical therapy, per nurse.
Physical Exam
-
Exam:
Awake, alert, no apparent distress.
Motor: Now able to move bilateral toes bilaterally! Consistently able to perform with commands
Some flickers of muscle movement noted approximately in thighs with gravity removed
Sensation: Intact to light touch.
Problems
-
Problem Status Onset Code
Spinal cord lesion G95.9
Paralysis G83.9
Assessment / Plan
-
88 yo F presents with low back pain, abd pain and acute onset of LE weakness, and urinary retention. MRI thoracolumbar spine demonstrates soft tissue lesion from T10-L2 highly suspicious for epidural hematoma.
Postoperative day 1, status post T10-L2 laminectomy for evacuation of epidural hematoma.
Neurological examination/motor examination improved, compared with preoperative status, given that she had 0/5 strength in lower extremities preoperatively.
Maintain GAVIN drain in place. Will pull, once output tapers.
Continue with antibiotics while GAVIN drain is in place.
Okay for DVT prophylaxis.
Okay to mobilize out of bed.
Will need aggressive physical therapy/Occupational Therapy.
Today's Communication
-
Discussed care with patient, and with RN.
[2024-04-04] MEDS: MELATONIN 6 MG PO (21:50)
[2024-04-05] VITALS (8 sets, daily range): BP systolic 123–152; BP diastolic 56–71; PULSE 78; O2SAT 94
[2024-04-05] MEDS: HEPARIN 5000 UNITS SC ×3 (05:06→21:06)
[2024-04-05] MEDS: FLAGYL 500 MG 100 IV ×3 (05:07→21:07)
[2024-04-05] MEDS: DILAUDID 0.5 MG IV ×2 (06:09→16:44)
--- NOTE | 2024-04-05 06:19 | PTCARENOTE ---
Patient calls out/screams often, states 'someone help me, someone stay with me, why am I here', patient complains of pain level from 3 to 7 in her back, last Dilaudid 0.5mg IV dose administered at 06:09; patient on q2t schedule, verbal reassurance &
verbal explanation given to patient multiple times throughout this nightshift, patient acknowledges understanding but as RN or PCT leaves room she immediately calls out again; will give detailed report to dayshift RN.
--- NOTE | 2024-04-05 06:35 | PTCARENOTE ---
04/04 7-7p pt calling during this shift 'someone help me', where am i. Was very difficult to PT/OT. Did mention to son she is very lonely, he was here for 20 david. Provided comfort, moving legs. rubbing hands putting on movies.
--- NOTE | 2024-04-05 06:41 | W.PN.HOSP.TC ---
Addendum entered and electronically signed by Claire Trujillo MD 04/05/24 14:15:
I personally performed a history and physical exam of the patient and discussed management with the resident. I reviewed the resident's note and agree with the documented findings and plan of care HPI/CC Except change
Change in documentation
CVS: S1-S2 normal
Chest: CTA B/L
Abdomen: Soft, NT / Bowel sounds present
Extremities: No edema
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
Back with dressing- mild shadowing
# Acute epidural hemorrhage T10-L2 severe spinal cord compression and central canal stenosis
S/P T10-L2 decompressive laminectomy for evacuation of epidural hematoma by 04/03/24
No trauma reported. Unclear cause for epidural hemorrhage.
Pathology sent-pending
Not much improvement in strength . Pain is better
PT OT
#Atelectasis- IS. Speech eval to rule out aspiration
#Urinary retention- Has a Goodman
#Hypokalemia - Resolved
#Essential HTN-SUPERVISOR REFINING Metoprolol, Nifedipine
#Dementia-SUPERVISOR REFINING Risperidone-At risk for Post op delirium
#CKD Stage 3
#Depression/Anxiety-SUPERVISOR REFINING Sertraline
#Low grade diverticulitis- Levaquin and Flagyl total 7 days
#Scoliosis
#DVT PPx SCD
#DNR - Per D/W SON
Original Note:
Today's Communication/Plan
-
continue abx
continue pt/ot
Assessment / Plan
Assessment / Plan
# Acute epidural hemorrhage T10-L2 with severe spinal cord compression and central canal stenosis
- MRI LS : EXTENSIVE ACUTE EPIDURAL HEMORRHAGE throughout the posterior and right-sided epidural space extending from T10 to L2 causing SEVERE SPINAL CORD COMPRESSION and CENTRAL CANAL STENOSIS (greatest at the L1 level).
- s/p T10-L2 decompressive laminectomy for evacuation of epidural hematoma 04/03/24
- post op day 2
- IV vanco, levaquin and flagyl
- IV dilaudid prn for pain
- regular diet
- PT/OT
- GAVIN tube in place
#Acute post op blood loss anemia
- continue to check hb
# Low grade diverticulitis
- continue Levaquin and Flagyl
#Essential HTN
-Metoprolol, Nifedipine
#Depression/Anxiety
-Sertraline
# CKD Stage 3- Creat 1.4, GFR 36.9
# Hyperlipidemia
# Atelectasis- IS. Speech eval to rule out aspiration
# Urinary retention- Goodman b/c of urinary retention
# Hypokalemia - Resolved
# Dementia-SUPERVISOR REFINING Risperidone-At risk for Post op delirium
# Scoliosis
#DVT PPx SCD
#DNR - Per D/W SON
Anticipated Discharge: 24 - 48 hours
Subjective/Interval History
-
Date of Service: April 05, 2024
Objective Data
-
Labs:
Laboratory Results
04/05/24
06:00
WBC Pending
Hgb Pending
Hct Pending
Plt Count Pending
Sodium Pending
Potassium Pending
Chloride Pending
Carbon Dioxide Pending
BUN Pending
Creatinine Pending
Glucose Pending
Calcium Pending
Vital Signs:
Vital Signs
Temp Pulse Resp BP Pulse Ox
99.6 F 81 16 147/67 93
04/05/24 03:46 04/05/24 03:46 04/05/24 03:46 04/05/24 03:46 04/05/24 04:00
I&O
04/03/24 04/04/24 04/05/24
06:59 06:59 06:59
Intake Total 1919 1120 / 1120
Output Total 1700 / 1700 550 / 550
Balance 220 / 220 570 / 570
Review of Systems
-
History Source: Patient
Respiratory: Denies Cough
Cardiac: Denies Chest Pain
Abdomen/GI: Denies Abdominal Pain
Musculoskeletal: Denies Joint Pain
Neuro: Denies Headache
Hematologic / Lymphatic: Denies Bleeding
Physical Exam
-
General: Well Developed, Well Nourished, No Apparent Distress and Other
HEENT: Normocephalic and Atraumatic
Respiratory: Clear to Auscultation
Cardiac: Regular Rhythm
GI: Nontender
Skin: Warm and Dry
Neuro: Awake, Alert, Oriented, No Sensory Deficits and Other (able to flicker toes, slight improvement in Planter flexion and extension)
Psych: Calm
Data Reviewed
-
Labs: Labs Reviewed by me, Discussed with Physician and Discussed with Patient
[2024-04-05 07:25] LABS: Hematocrit 26.9 % (37.0-47.0); Hemoglobin 9.1 g/dL (12.0-16.0); Mean Corp Hgb Conc. 33.8 g/dL (33.0-37.0); Mean Corpuscular Hgb 29.7 pg (27.0-31.0); Mean Corpuscular Volume 87.9 fL (81.0-99.0); Platelet Count 173 10^3/uL (130-400); Red Blood Cell Count 3.06 10^6/uL (4.20-5.40); Red Cell Dist. Width 13.8 % (11.5-14.5); White Blood Cell Count 8.3 10^3/uL (4.8-10.8)
[2024-04-05 08:08] LABS: Blood Urea Nitrogen 29 mg/dl (7-17); Carbon Dioxide 25 mmol/L (22-30); Chloride 106 mmol/L (98-107); Estimated Creatinine Clearance 33 ml/min; Glucose 111 mg/dl (70-99); Potassium 3.5 mmol/L (3.5-5.1); Sodium 136 mmol/L (135-145); eGFR 36.19
[2024-04-05] MEDS: TOPROL XL 50 MG PO (09:48)
[2024-04-05] MEDS: ZOLOFT 75 MG PO (09:48)
[2024-04-05] MEDS: COLACE 100 MG PO ×2 (09:48→19:49)
[2024-04-05] MEDS: PROCARDIA XL (EXTENDED RELEASE) 60 MG PO (09:50)
[2024-04-05] MEDS: RISPERDAL 0.5 MG PO (09:50)
[2024-04-05] MEDS: SENOKOT 17.2 MG PO ×2 (09:51→19:49)
[2024-04-05] MEDS: ULTRAM 50 MG PO ×2 (10:04→19:48)
[2024-04-05] MEDS: ZANAFLEX 2 MG PO (12:24)
--- NOTE | 2024-04-05 13:10 | PTCARENOTE ---
pt continues to call out for help, regardless of everyone's assistance on the unit to provide comfort and support, putting on movies, talking with. PROM performed on legs which she does like. Is difficult to perform q2hr turns, when moved she
immediately will call out stating she is uncomfortable, repeated attempts to explain skin break down. Eventually called son Haroldo to ask for assistance and to have pt speak to and see if that would help her relax. there is slight increase movement in
feet (more then just wiggles toes).
--- NOTE | 2024-04-05 14:14 | CM ---
CM reviewed chart. Pt is LTC at [facility]. Referral for return sent via [facility].
Discharge dispo return to [facility] when medically stable for dc.
[2024-04-05] MEDS: LEVAQUIN 50 IV ×2 (15:12→15:13)
--- NOTE | 2024-04-05 16:17 | PN.NS ---
Subjective
-
Patient seen and examined. No family is at bedside. According to RN, patient has been increasingly agitated overnight, throughout the day. Has refused to work with physical therapy.
Physical Exam
-
Exam:
Exam:
Awake, alert, no apparent distress. Conversant. Able to communicate in Malay and simple sentences.
Motor: Now able to move bilateral toes bilaterally! Consistently able to perform with commands
Some flickers of muscle movement noted approximately in thighs/quadriceps with gravity removed
Sensation: Intact to light touch.
Incision: Dressing removed and Myron-Lan drain removed in clean fashion without complication. Incision/yaquelin appear to be healing well, without any evidence of erythema, edema, or fluctuance.
Problems
-
Problem Status Onset Code
Spinal cord lesion G95.9
Paralysis G83.9
Assessment / Plan
-
88 yo F presents with low back pain, abd pain and acute onset of LE weakness, and urinary retention. MRI thoracolumbar spine demonstrates soft tissue lesion from T10-L2 highly suspicious for epidural hematoma.
Postoperative day 2, status post T10-L2 laminectomy for evacuation of epidural hematoma.
Neurological examination/motor examination minimally improved, compared with preoperative status, given that she had 0/5 strength in lower extremities preoperatively.
Okay to discontinue antibiotics now the Myron-Lan drain is out
Okay for DVT prophylaxis.
Okay to mobilize out of bed.
Will need aggressive physical therapy/Occupational Therapy--mobilization.
Okay to discharge from neurosurgical standpoint, when cleared from medical perspective.
Patient will need follow-up in the office in approximately 2 weeks for wound check/staple removal.
Today's Communication
-
Discussed with patient, RN, and hospital medicine
[2024-04-05] MEDS: RISPERDAL 0.25 MG PO (16:45)
--- NOTE | 2024-04-05 18:41 | PTCARENOTE ---
pt continued to cry out/call out almost entire shift, at times becoming nasty. Placed static overlay and cream to bottom. No family visited
[2024-04-05] MEDS: MELATONIN 6 MG PO (21:06)
[2024-04-06] MEDS: ZANAFLEX 2 MG PO ×2 (02:58→16:22)
[2024-04-06] MEDS: ULTRAM 50 MG PO ×2 (02:58→15:45)
[2024-04-06] MEDS: FLAGYL 500 MG 100 IV (05:52)
[2024-04-06] MEDS: HEPARIN 5000 UNITS SC ×3 (05:53→19:52)
--- NOTE | 2024-04-06 06:35 | W.PN.HOSP.TC ---
Addendum entered and electronically signed by All Burton MD 04/06/24 14:06:
Cauda equina syndrome was present on admission and treated with decompressive laminectomy for evacuation of epidural hematoma
Addendum entered and electronically signed by All Burton MD 04/06/24 10:45:
I saw and evaluated the patient. I reviewed the resident�s note and agree with findings and plan as documented in the resident�s note.
No new complaints.
Gen: NAD, Awake and alert
Eyes: EOMI, PERRLA, no scleral icterus.
Neck: supple.
CV: RRR, +S1/S2, no m/r/g.
Resp: CTAB, no rales, wheezes, or rhonchi.
Skin: No rashes.
Neuro: CN 2-12 intact, wiggles toes, unable to move thighs/legs on command
Psych: Normal mood and affect.
Severe spinal cord compression and central canal stenosis due to acute epidural hemorrhage at T10-L2:
-s/p T10-L2 decompressive laminectomy for evacuation of epidural hematoma by Dr. Ham on 04/03/24
-No trauma reported. Unclear cause for epidural hemorrhage.
-Pathology pending
-case discussed this AM with Dr. Ham. No evidence of epidural infection. No antibiotics needed from her standpoint.
-pathology needs to be followed after discharge
Mild/early diverticulitis:
-Continue Levaquin/Flagyl to complete 7 days
Medically cleared for discharge.
Original Note:
Today's Communication/Plan
-
Pt/OT
Assessment / Plan
Assessment / Plan
# Acute epidural hemorrhage T10-L2 with severe spinal cord compression and central canal stenosis
- MRI LS : EXTENSIVE ACUTE EPIDURAL HEMORRHAGE throughout the posterior and right-sided epidural space extending from T10 to L2 causing SEVERE SPINAL CORD COMPRESSION and CENTRAL CANAL STENOSIS (greatest at the L1 level).
- s/p T10-L2 decompressive laminectomy for evacuation of epidural hematoma 04/03/24
- post op day 3
- IV dilaudid prn for pain
- regular diet
- PT/OT
- drain taken out by Neurosurgery
#Acute post op blood loss anemia
- continue to check hb
# Low grade diverticulitis
- switched IV to PO Levaquin and Flagyl
#Essential HTN
-Metoprolol, Nifedipine
#Depression/Anxiety
-Sertraline
# CKD Stage 3- Creat 1.4, GFR 36.9
# Hyperlipidemia
# Atelectasis- IS. Speech eval to rule out aspiration
# Urinary retention- Goodman b/c of urinary retention
# Hypokalemia - Resolved
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
# Scoliosis
#DVT PPx SCD
#DNR - Per D/W SON
Anticipated Discharge: Within 24 hours
Subjective/Interval History
-
Date of Service: April 06, 2024
Objective Data
-
Labs:
Laboratory Results
04/06/24
06:07
WBC Pending
Hgb Pending
Hct Pending
Plt Count Pending
Sodium Pending
Potassium Pending
Chloride Pending
Carbon Dioxide Pending
BUN Pending
Creatinine Pending
Glucose Pending
Calcium Pending
Vital Signs:
Vital Signs
Temp Pulse Resp BP Pulse Ox
98.7 F 83 19 152/71 92
04/05/24 23:12 04/05/24 23:12 04/05/24 23:12 04/05/24 23:12 04/05/24 23:12
I&O
04/04/24 04/05/24 04/06/24
06:59 06:59 06:59
Intake Total 1919 1120 / 1120 720 / 720
Output Total 1700 / 1700 550 / 550 740 / 740
Balance 220 / 220 570 / 570 -20 / -20
Review of Systems
-
History Source: Patient
Constitutional: Denies Fever
Cardiac: Denies Chest Pain
Abdomen/GI: Denies Abdominal Pain
Musculoskeletal: Denies Joint Pain
Neuro: Reports Weakness (b/l LE); Denies Dizzy or Headache
Hematologic / Lymphatic: Denies Bleeding
Physical Exam
-
General: Well Nourished and No Apparent Distress
HEENT: Normocephalic and Atraumatic
Respiratory: Clear to Auscultation
Cardiac: Regular Rhythm
GI: Soft
Skin: Warm and Rash
Neuro: Awake, Alert, Oriented, No Sensory Deficits and Other (Able to flicker b/l toes and some plantar flexion)
Psych: Calm
Data Reviewed
-
Labs: Labs Reviewed by me, Discussed with Physician and Discussed with Patient
[2024-04-06 06:43] LABS: Hematocrit 26.3 % (37.0-47.0); Hemoglobin 9.2 g/dL (12.0-16.0); Mean Corpuscular Hgb 30.8 pg (27.0-31.0); Mean Platelet Volume 11.3 fL (7.4-10.4); Platelet Count 159 10^3/uL (130-400); Red Blood Cell Count 2.99 10^6/uL (4.20-5.40); Red Cell Dist. Width 13.5 % (11.5-14.5); White Blood Cell Count 7.4 10^3/uL (4.8-10.8)
[2024-04-06 06:54] LABS: Blood Urea Nitrogen 28 mg/dl (7-17); Calcium 8.3 mg/dl (8.4-10.2); Carbon Dioxide 25 mmol/L (22-30); Chloride 107 mmol/L (98-107); Estimated Creatinine Clearance 38 ml/min; Glucose 115 mg/dl (70-99); Potassium 3.4 mmol/L (3.5-5.1); Sodium 136 mmol/L (135-145); eGFR 43.54
[2024-04-06 07:05] VITALS: BP 153/72
[2024-04-06] MEDS: SENOKOT 17.2 MG PO ×2 (07:41→19:52)
[2024-04-06] MEDS: RISPERDAL 0.5 MG PO (07:41)
[2024-04-06] MEDS: ZOLOFT 75 MG PO (07:41)
[2024-04-06] MEDS: PROCARDIA XL (EXTENDED RELEASE) 60 MG PO (07:41)
[2024-04-06] MEDS: TOPROL XL 50 MG PO (07:41)
[2024-04-06] MEDS: COLACE 100 MG PO ×2 (07:41→19:52)
[2024-04-06] MEDS: LEVAQUIN 250 MG PO (09:50)
--- NOTE | 2024-04-06 10:59 | CM ---
Addendum entered by Vera Aguilera RN 04/06/24 16:15:
IMM reviewed and placed on the chart.
Addendum entered by Vera Aguilera RN 04/06/24 14:42:
Auth started with [facility] ([id number]: [phone] - f: [phone]; Reference # [id number].
Original Note:
Reviewed the chart notes. Patient ready for discharge. Message left with Keyona AJ Admission Director for NPI # of facility and physician. Prior auth is required. CM continues to be available to patient/family and is monitoring medical plan
for needs at discharge.
Plan: Discharge back to [facility] once bed secured and auth obtained.
--- NOTE | 2024-04-06 13:45 | PN.CDI ---
CDI
- -
CDI:
Physician Documentation Request
Admit Date: 04/03/24 02:26
Dear Doctor Jaci,
Please review the following and provide your response in the progress notes.
Clinical Indicators:
The diagnosis of cauda equina syndrome was documented on 04/03 H&P but is not consistently noted in subsequent documentation.
- 04/03 H&P 'Cauda Equina Syndrome...Concern for soft tissue mass/malignancy'
- 04/06 PN 'Severe spinal cord compression and central canal stenosis due to acute epidural hemorrhage at T10-L2'
- 'wiggles toes, unable to move thighs/legs on command'
Please clarify the following:
____ - Cauda equina was present on admission and is now resolved.
____ - Cauda equina was present on admission and is still being monitored, evaluated or treated
____ - Cauda equina was ruled out
____ - Cauda equina is still a likely, suspected, probable diagnosis
____ - Other
Use of terms such as suspected, likely, concern for, or probable (associated with a specific diagnosis that is being evaluated, monitored, or treated as if it exists) are acceptable and can be coded in the inpatient setting, when documented at the
time of discharge.
Thank you,
Tyra Tompkins RN
CDI Specialist
Please use your independent medical judgment in providing your response.
[2024-04-06 15:00] VITALS: BP 134/69
[2024-04-06] MEDS: FLAGYL 500 MG PO (15:45)
[2024-04-06] MEDS: KCL 10 MEQ PO (16:22)
--- NOTE | 2024-04-06 16:26 | PTCARENOTE ---
pt yelling out and saying 'i want to ' and asked for a gun so she could shoot herself. dr lyn and resident notified. 1:1 and darrick consult ordered
[2024-04-06] MEDS: RISPERDAL 0.25 MG PO (18:10)
[2024-04-06] MEDS: MELATONIN 6 MG PO (22:34)
[2024-04-06 23:33] VITALS: BP 169/83
[2024-04-07] MEDS: FLAGYL 500 MG PO ×4 (00:19→23:05)
[2024-04-07] MEDS: DILAUDID 0.5 MG IV (04:54)
[2024-04-07] MEDS: HEPARIN 5000 UNITS SC ×2 (05:24→21:03)
--- NOTE | 2024-04-07 07:00 | W.PN.HOSP.TC ---
Addendum entered and electronically signed by All Burton MD 04/07/24 08:57:
I saw and evaluated the patient. I reviewed the resident�s note and agree with findings and plan as documented in the resident�s note.
c/o numbness in LEs
Gen: NAD, Awake and alert
Eyes: EOMI, PERRLA, no scleral icterus.
Neck: supple.
CV: remains RRR, +S1/S2, no m/r/g.
Resp: remains CTAB, no rales, wheezes, or rhonchi.
Skin: No rashes.
Neuro: remains CN 2-12 intact, wiggles toes, unable to move thighs/legs on command
Psych: Normal mood and affect.
Severe spinal cord compression (cauda equina syndrome, POA) and central canal stenosis due to acute epidural hemorrhage at T10-L2:
-s/p T10-L2 decompressive laminectomy for evacuation of epidural hematoma by Dr. Ham on 04/03/24
-No trauma reported. Unclear cause for epidural hemorrhage.
-Pathology: Organizing fresh hemorrhage, consistent with hematoma
-case discussed 04/06/24AM with Dr. Ham. No evidence of epidural infection. No antibiotics needed from her standpoint.
Mild/early diverticulitis:
-Continue Levaquin/Flagyl to complete 7 days
Suicidal ideation:
-1:1
-psych eval
Medically cleared for discharge pending psych eval.
Original Note:
Today's Communication/Plan
-
Discharge back to [facility] once bed secured and auth obtained
Assessment / Plan
Assessment / Plan
# Acute epidural hemorrhage T10-L2 with severe spinal cord compression and central canal stenosis
Cauda equina syndrome was present on admission and treated with decompressive laminectomy for evacuation of epidural hematoma
- MRI LS : EXTENSIVE ACUTE EPIDURAL HEMORRHAGE throughout the posterior and right-sided epidural space extending from T10 to L2 causing SEVERE SPINAL CORD COMPRESSION and CENTRAL CANAL STENOSIS (greatest at the L1 level).
- s/p T10-L2 decompressive laminectomy for evacuation of epidural hematoma 04/03/24
- post op day 4
- IV dilaudid prn for pain
- regular diet
- PT/OT
- drain taken out by Neurosurgery
#Acute post op blood loss anemia
-Hemoglobin improved 10.4 today
- continue to check hb
# Low grade diverticulitis
- switched IV to PO Levaquin and Flagyl- continue
#Essential HTN
-Metoprolol, Nifedipine
#Depression/Anxiety
-Sertraline
-Psychiatric consult pending
- 1:1 observation
# CKD Stage 3- Creat 1.2, GFR 38
# Hyperlipidemia
# Atelectasis- IS. Speech eval to rule out aspiration
# Urinary retention- Goodman b/c of urinary retention
# Hypokalemia - Resolved
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
# Scoliosis
#DVT PPx SCD
#DNR - Per D/W SON
Anticipated Discharge: Today
Subjective/Interval History
-
Date of Service: April 07, 2024
Objective Data
-
Labs:
Laboratory Results
04/07/24
06:20
WBC Pending
Hgb Pending
Hct Pending
Plt Count Pending
Sodium Pending
Potassium Pending
Chloride Pending
Carbon Dioxide Pending
BUN Pending
Creatinine Pending
Glucose Pending
Calcium Pending
Vital Signs:
Vital Signs
Temp Pulse Resp BP Pulse Ox
98.3 F 78 17 169/83 91
04/06/24 23:33 04/06/24 23:33 04/06/24 23:33 04/06/24 23:33 04/06/24 23:33
I&O
04/06/24 04/07/24 04/08/24
06:59 06:59 06:59
Intake Total 1200 / 1200 1380 / 1380
Output Total 1590 / 1590 1750 / 1750
Balance -390 / -390 -370 / -370
Review of Systems
-
History Source: Patient
Constitutional: Denies Fever
Respiratory: Denies Cough
Cardiac: Denies Chest Pain
Abdomen/GI: Denies Abdominal Pain
Musculoskeletal: Denies Joint Pain
Neuro: Denies Dizzy
Hematologic / Lymphatic: Denies Bleeding
Physical Exam
-
General: Well Developed and Well Nourished
HEENT: Normocephalic and Atraumatic
Respiratory: Clear to Auscultation
Cardiac: Regular Rhythm
GI: Soft and Nontender
Neuro: Awake, Alert, Oriented, No Sensory Deficits and Other (Planter flexion and flickering of toes present)
Data Reviewed
-
Labs: Labs Reviewed by me, Discussed with Physician and Discussed with Patient
[2024-04-07 07:32] LABS: Blood Urea Nitrogen 28 mg/dl (7-17); Calcium 8.4 mg/dl (8.4-10.2); Carbon Dioxide 26 mmol/L (22-30); Chloride 105 mmol/L (98-107); Estimated Creatinine Clearance 38 ml/min; Glucose 112 mg/dl (70-99); Potassium 3.6 mmol/L (3.5-5.1); Sodium 137 mmol/L (135-145); eGFR 43.54
[2024-04-07 07:47] LABS: Hematocrit 29.7 % (37.0-47.0); Hemoglobin 10.4 g/dL (12.0-16.0); Mean Corpuscular Hgb 30.1 pg (27.0-31.0); Mean Corpuscular Volume 86.1 fL (81.0-99.0); Mean Platelet Volume 11.2 fL (7.4-10.4); Platelet Count 195 10^3/uL (130-400); Red Blood Cell Count 3.45 10^6/uL (4.20-5.40); Red Cell Dist. Width 13.7 % (11.5-14.5); White Blood Cell Count 11.1 10^3/uL (4.8-10.8)
[2024-04-07 07:55] VITALS: BP 175/88
[2024-04-07] MEDS: TOPROL XL 50 MG PO (08:03)
[2024-04-07] MEDS: PROCARDIA XL (EXTENDED RELEASE) 60 MG PO (08:03)
[2024-04-07] MEDS: SENOKOT 17.2 MG PO ×2 (08:03→19:42)
[2024-04-07] MEDS: LEVAQUIN 250 MG PO (08:03)
[2024-04-07] MEDS: COLACE 100 MG PO ×2 (08:03→19:42)
[2024-04-07] MEDS: RISPERDAL 0.5 MG PO (08:04)
--- NOTE | 2024-04-07 12:45 | CM ---
Addendum entered by Vera Aguilera RN 04/07/24 16:49:
[id number] - completed. Denied. Fast Track Appeal information provided to the patient's son.
Call: [phone]

Addendum entered by Vera Aguilera RN 04/07/24 15:15:
CM spoke with the patient's son via telephone. Updated on insurance issue. Patient will return to facility with or without auth. Will be private pay.
Addendum entered by Vera Aguilera RN 04/07/24 14:11:
Received call from [facility] ([phone] opt #[phone]) - [id number] review requested by Saturday04/08/24 @ 0900. Request e-mailed to [facility] [address] Dr. Conti.
Original Note:
Reviewed the chart notes. ONEIL spoke with Annia with [facility]; auth request has been sent to [employer] for review. CM continues to be available to patient/family and is monitoring medical plan for needs at discharge.
Plan: Discharge back to [facility] once auth obtained.
[2024-04-07 12:51] VITALS: BP 148/73; PULSE 79; O2SAT 93
[2024-04-07 12:53] VITALS: BP 148/73; PULSE 79; O2SAT 93
--- NOTE | 2024-04-07 14:30 | CS.PSYCHR ---
Consult Summary - Psychiatry
-
Pt is 88 yo female with hx of HTN, CKD III, HLD, anxiety/depression, dementia, who presented to the ED with sudden onset severe lower back pain. Pt underwent neurosurgery for spinal cord compression re spinal cord compression- S/P T10-L2
decompressive laminectomy for evacuation of epidural hematoma by Dr. Ham on 04/03/24. Pt reportedly progressing well, but Psychiatry asked to evaluate due suicidal statement last night, saying she wants to and asking for a gun. Son present,
reports pt has been making suicidal statements almost daily on a chronic basis for about 8 years, since her . She has not acted on these thoughts; pt has severe dementia and is unable to elaborate. Pt alert, resting comfortably,
upright/reclining in bed watching TV, with no signs of distress.
Psych hx: none reported other than progressive dementia. Pt prescribed Sertraline, Risperidone.
SH: was living with son for about a year, now residing [facility] for the past year, noted requiring total care
MSE: alert, not oriented, not able to answer questions or give information. Pt primarily Rwandan-speaking, speaks some Solomon Islander. Pt calm, watching TV. No agitation. Insight appears poor
Imp: Dementia, progressive. Pt has pattern of chronically making suicidal statements with no apparent intent/ no action taken; suicide risk appears low
Rec: continue current psychotropic medications. Pt is psychiatrically cleared for discharge to return to [facility] long-term care facility, when medically stable
[2024-04-07 15:32] VITALS: BP 144/75
[2024-04-07] MEDS: HEPARIN SC (16:07)
[2024-04-07] MEDS: ZOLOFT 75 MG PO (16:25)
[2024-04-07] MEDS: RISPERDAL 0.25 MG PO (16:25)
[2024-04-07] MEDS: MELATONIN 6 MG PO (21:03)
[2024-04-07] MEDS: ZANAFLEX 2 MG PO (21:03)
[2024-04-07 23:23] VITALS: BP 153/77
[2024-04-08] MEDS: HEPARIN 5000 UNITS SC (05:40)
--- NOTE | 2024-04-08 06:56 | W.PN.HOSP.TC ---
Addendum entered and electronically signed by All Burton MD 04/08/24 09:09:
I saw and evaluated the patient. I reviewed the resident�s note and agree with findings and plan as documented in the resident�s note.
No new complaints. Denies CP/SOB.
Gen: NAD, Awake and alert
Eyes: EOMI, PERRLA, no scleral icterus.
Neck: supple.
CV: continues to remain RRR, +S1/S2, no m/r/g.
Resp: continues to remain CTAB, no rales, wheezes, or rhonchi.
Skin: No rashes.
Neuro: remains CN 2-12 intact, wiggles toes
Psych: Normal mood and affect.
Severe spinal cord compression (cauda equina syndrome, POA) and central canal stenosis due to acute epidural hemorrhage at T10-L2:
-s/p T10-L2 decompressive laminectomy for evacuation of epidural hematoma by Dr. Ham on 04/03/24
-No trauma reported. Unclear cause for epidural hemorrhage.
-Pathology: Organizing fresh hemorrhage, consistent with hematoma
-case discussed 04/06/24AM with Dr. Ham. No evidence of epidural infection. No antibiotics needed from her standpoint.
-with acute urinary retention, place holbrook, start Flomax, outpt Uro f/u in 1 week
Mild/early diverticulitis:
-Continue Levaquin/Flagyl to complete 7 days
Suicidal ideation:
-as per discussion with Dr. Snow on 04/07/24, pt has made comments about suicide for the last 8 years since her
-Psychiatry cleared the patient for discharge from their standpoint.
Medically cleared for discharge. Case management aware.
Total time spent on d/c = 31 min. This included today's physical exam, progress note, review of laboratory and diagnostic data, preparation of discharge documents and prescriptions, and discussions about the pt's hospital course and discharge plan
with the patient and other medical sales specialist involved in the patient's care.
Original Note:
Today's Communication/Plan
-
d/c to [facility]
Assessment / Plan
Assessment / Plan
# Acute epidural hemorrhage T10-L2 with severe spinal cord compression and central canal stenosis
Cauda equina syndrome was present on admission and treated with decompressive laminectomy for evacuation of epidural hematoma
- MRI LS : EXTENSIVE ACUTE EPIDURAL HEMORRHAGE throughout the posterior and right-sided epidural space extending from T10 to L2 causing SEVERE SPINAL CORD COMPRESSION and CENTRAL CANAL STENOSIS (greatest at the L1 level).
- s/p T10-L2 decompressive laminectomy for evacuation of epidural hematoma 04/03/24
- post op day 5
- IV dilaudid prn for pain
- regular diet
- PT/OT
- drain taken out by Neurosurgery
#Acute post op blood loss anemia
-Hemoglobin improved
# Low grade diverticulitis
- switched IV to PO Levaquin and Flagyl- continue 02/20
#Essential HTN
-Metoprolol, Nifedipine
#Depression/Anxiety
-Sertraline
-Psychiatric input appreciated
# CKD Stage 3- Creat 1.2, GFR 38
# Hyperlipidemia
# Atelectasis- IS. Speech eval to rule out aspiration
# Urinary retention- Holbrook b/c of urinary retention
# Hypokalemia - Resolved
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
# Scoliosis
#DVT PPx SCD
#DNR - Per D/W SON
Anticipated Discharge: Today
Subjective/Interval History
-
Date of Service: April 08, 2024
Objective Data
-
Labs:
Laboratory Results
04/08/24
06:00
WBC Pending
Hgb Pending
Hct Pending
Plt Count Pending
Sodium Pending
Potassium Pending
Chloride Pending
Carbon Dioxide Pending
BUN Pending
Creatinine Pending
Glucose Pending
Calcium Pending
Vital Signs:
Vital Signs
Temp Pulse Resp BP Pulse Ox
98.2 F 81 20 153/77 97
04/07/24 23:23 04/07/24 23:23 04/07/24 23:23 04/07/24 23:23 04/07/24 23:23
I&O
04/06/24 04/07/24 04/08/24
06:59 06:59 06:59
Intake Total 1200 / 1200 1380 / 1380 400 / 400
Output Total 1590 / 1590 1750 / 1750 1205 / 1205
Balance -390 / -390 -370 / -370 -805 / -805
Review of Systems
-
History Source: Patient
Constitutional: Denies Fever
Cardiac: Denies Chest Pain
Abdomen/GI: Denies Abdominal Pain
Musculoskeletal: Denies Joint Pain
Neuro: Reports Weakness; Denies Headache
Physical Exam
-
General: Well Developed and Well Nourished
HEENT: Normocephalic and Atraumatic
Respiratory: Clear to Auscultation
Cardiac: Regular Rhythm
GI: Soft and Nontender
Neuro: Awake, Alert, Oriented, No Sensory Deficits and Other (Improving Planter flexion and extension)
Psych: Calm
Data Reviewed
-
Labs: Labs Reviewed by me, Discussed with Physician and Discussed with Patient
[2024-04-08 07:18] VITALS: BP 176/89
[2024-04-08] MEDS: RISPERDAL 0.5 MG PO (07:21)
[2024-04-08] MEDS: TOPROL XL 50 MG PO (07:21)
[2024-04-08] MEDS: LEVAQUIN 250 MG PO (07:21)
[2024-04-08] MEDS: ZOLOFT 75 MG PO (07:21)
[2024-04-08] MEDS: FLAGYL 500 MG PO (07:22)
[2024-04-08] MEDS: SENOKOT 17.2 MG PO (07:22)
[2024-04-08] MEDS: PROCARDIA XL (EXTENDED RELEASE) 60 MG PO (07:22)
[2024-04-08] MEDS: COLACE 100 MG PO (07:22)
--- NOTE | 2024-04-08 08:39 | W.DCSUMMARY ---
Addendum entered and electronically signed by Tristan Beatty MD, Resident 04/08/24 09:12:
Take Flomax 0.4 mg tablet once daily.
Original Note:
Discharge Summary
Discharge Data
Date of Admission: 04/03/24
Date of Discharge: 04/08/24
-
Pending Results: Yes
Hospital Course
Discharging Physician : Tristan Beatty MD ; All Burton MD
Disposition : SNF ( [facility])
Primary care physician : Jose Betancourt
Principal Discharge diagnosis : Acute epidural hemorrhage T10-L2 with severe spinal cord compression and central canal stenosis
Chronic Discharge diagnosis : Hypertension, CKD stage III, hyperlipidemia, history of small bowel obstruction, anxiety/depression, dementia.
Hospital Course : 88-year-old female presented to the emergency department with sudden onset of low back, lower abdominal pain with inability to move both legs. She denied any trauma, fever, recent illness. Abdominal/pelvis CT, thoracic and lumbar
spine MRI obtained on urgent basis and there was a concern of large irregular shaped epidural mass in the lower thoracic and upper lumbar spine. Repeat MRI with contrast was obtained for further evaluation which confirmed extensive acute epidural
hemorrhage throughout the posterior and right-sided epidural space extending from T10 to L2 causing severe spinal cord compression and central canal stenosis. Patient underwent emergent surgery by neurosurgeon on 04/03/2024. She had T10-L2
decompressive laminectomy for evacuation of epidural hematoma. Initially she also had a GAVIN tube which were later removed. Aggressive physical therapy/OT was recommended. Her strength in the lower extremity remained 0/5, however there was
progressive improvement in plantarflexion and toe extension and flexion. Postoperative patient remained agitated and refused to work with physical therapy. She also had an episode of suicidal ideation and requested for a gun to kill herself.
Psych was consulted and she was put on a 1: 1 observation. Neurosurgery cleared the patient for discharge and recommended follow-up in 2 weeks for wound check/staple removal. In addition to neurological concern. Imaging studies also showed
low-grade diverticulitis and she was put on IV Levaquin and Flagyl and initially which was later transitioned to p.o. and recommended to complete 7-day course in total. she has been medically cleared for discharge at this time
Important imaging findings : CT Abd/pel Without Iv Or Oral
IMPRESSION:
Chronic posterior lung base interstitial thickening.
Stable asymmetric right renal cortical atrophy. Stable 6 mm calculus in the right renal pelvis. No other right renal or ureteral calculus. No hydronephrosis or perinephric stranding to suggest obstructive uropathy.
Stable renal cysts.
Stable abdominal aortic calcification and mild ectasia.
Diverticulosis. Suggestion of very subtle soft tissue stranding associated with diverticula in the ascending colon, raising the possibility of subtle low-grade acute diverticulitis. No perforation or abscess. No dilated bowel loops or evidence of
bowel obstruction.
Normal appendix.
Small right inferior periumbilical hernia containing a short segment of the small bowel. No proximal obstruction.
Scoliosis. Discogenic and facet degenerative changes. Chronic deformity of the right femoral neck related to remote fracture. Mild chronic diminished stature of L3. No acute vertebral compression deformity. Interval development of fracture deformity
of the right superior and inferior pubic ramus, with subsequent healing.
MR Lumbar Without Contrast; MR Thoracic Spine Without
IMPRESSION:
CERVICAL SPINE:
1. Moderate multilevel discogenic degenerative disease with multilevel disc-osteophyte complexes. Moderate to severe bilateral cervical facet joint arthrosis.
2. Mild spinal cord compression and central canal stenosis at C3/C4 and C4/C5.
THORACIC SPINE:
1. 5.7 mm anterolisthesis of T2 on T3 with mild ventral spinal cord compression at the T2/T3 level. Severe discogenic degenerative disease at T2/T3.
2. Moderately exaggerated thoracic kyphosis.
LUMBAR SPINE:
1. EXTENSIVE ACUTE EPIDURAL HEMORRHAGE throughout the posterior and right-sided epidural space extending from T10 to L2 causing SEVERE SPINAL CORD COMPRESSION and CENTRAL CANAL STENOSIS (greatest at the L1 level). Epidural malignancy or a large
epidural abscess are considered less likely given the signal characteristics and morphology of the epidural mass.
2. Severe discogenic degenerative disease at L3/L4 and L4/L5. Moderate discogenic degenerative disease at the other lumbar levels.
3. Moderate fluid signal intensity in the right side of the L4/L5 intervertebral disc with adjacent paraspinal muscle edema raising the possibility of acute infectious discitis if there are signs/symptoms of infection. No evidence for epidural or
paraspinal fluid collection at this level.
4. Severe central canal stenosis at L3/L4.
5. Severe bilateral neural foraminal narrowing at L5/S1.
6. Acute bilateral sacral insufficiency fractures.
7. Severe right renal atrophy.
MR Lumbar With Contrast; MR Thoracic Spine W Contrast
IMPRESSION:
CERVICAL SPINE:
1. Moderate multilevel discogenic degenerative disease with multilevel disc-osteophyte complexes. Moderate to severe bilateral cervical facet joint arthrosis.
2. Mild spinal cord compression and central canal stenosis at C3/C4 and C4/C5.
THORACIC SPINE:
1. 5.7 mm anterolisthesis of T2 on T3 with mild ventral spinal cord compression at the T2/T3 level. Severe discogenic degenerative disease at T2/T3.
2. Moderately exaggerated thoracic kyphosis.
3. Interval increase in a moderate amount of enhancing subpleural airspace consolidation in the lower lobes of both lungs. Diagnostic possibilities are (1) dependent atelectasis or (2) bilateral lower lobe pneumonia (possibly secondary to
aspiration pneumonitis).
LUMBAR SPINE:
1. EXTENSIVE ACUTE EPIDURAL HEMORRHAGE throughout the posterior and right-sided epidural space extending from T10 to L2 causing SEVERE SPINAL CORD COMPRESSION and CENTRAL CANAL STENOSIS (greatest at the L1 level).
2. Severe discogenic degenerative disease at L3/L4 and L5/S1. Moderate discogenic degenerative disease at the other lumbar levels.
3. Moderate fluid signal intensity in the right side of the L3/L4 intervertebral disc with adjacent mild enhancing endplate bone marrow edema and right paraspinal muscle edema which is likely secondary to degenerative disease. Acute infectious
discitis is considered less likely.
4. Severe central canal stenosis at L3/L4.
5. Severe bilateral neural foraminal narrowing at L5/S1.
6. Acute bilateral sacral insufficiency fractures.
7. Severe right renal atrophy.
Procedure findings : T10-L2 decompressive laminectomy for evacuation of epidural hematoma:
The patient is brought to the operating room, and induced under general endotracheal anesthesia. Patient was then carefully positioned for the somatizations and prone position onto the operating room table. Special care was taken to ensure that
all pressure points, including eyes, chin, bilateral neck, knees, chest, groin appropriately padded. Attempt entry was placed over the gluteal fold. The fluoroscopic C-arm was brought in and the T10-L3 levels were marked out. A midline incision
was marked out over the spine. This was then prepped and draped in the usual standard fashion. After appropriate timeout was performed, local anesthetic was then infiltrated to the marked incision. Using a 10 blade, incision was made through the
skin. Dissection was then carried down through the subcutaneous tissues to the thoracodorsal fascia. Using 4 electrocautery, fascia opening was made along bilateral aspects of the spinous processes. Subperiosteal dissection was then carried out
over the spinous processes and lamina. 2 self-retaining cerebellar retractors were then placed to hold the musculature side. Localization was then performed using lateral fluoroscopy. At this point after confirming appropriate levels, a Leksell
rongeur was utilized to remove the spinous processes from the inferior aspect of T10 down to the superior aspect of L3. The lamina was then shaved thinned using the [place] drill. Once ligamentum flavum was encountered, 2, 3, and 4 mm Kerrison
punch rongeurs were utilized to complete the laminectomy and remove the thickened ligamentum flavum. Immediately under this, there was acute hematoma note did. This was then irrigated dissected off of the dorsal lateral aspect of the thecal sacs
using a Morse 4 dissector, Morse 1 dissector. We continued her decompression with rostrally and caudally until there is no evidence of additional hematoma. No obvious bleeding source was noted. There was a small portion of clot in the right
L1-L2 lateral gutter, that was evacuated, and sent off for pathology for permanent specimen. Once the thecal sac was clearly visualized, and inspection of the lateral gutters did not demonstrate any obvious evidence of residual hematoma, I then
elected to close. The wound was thoroughly irrigated with Betadine irrigation. Meticulous hemostasis was achieved using Bovie electrocautery, bipolar cautery, Gelfoam soaked in thrombin, Surgiflo hemostatic material. Thin piece of Gelfoam soaked
in thrombin was placed over the exposed thecal sac. Additional local anesthetic was infiltrated subfascial musculature. Vancomycin powder was then sprinkled into the subfascial space. The wound was closed reapproximating the fascia using
interrupted 0 Vicryl sutures. The subcutaneous fatty layer was then reapproximated using interrupted inverted 2-0 Vicryl sutures. The subdermal and epidermal layers were then reapproximated using interrupted inverted 3-0 Vicryl sutures. The skin
was then reapproximated using a skin stapler. A 7 South [place]ese Myron-Lan drain was placed in the subfascial space, and the drain exit site was secured using a 3-0 nylon suture. The wound was then dressed using Xeroform, Telfa, Tegaderm, and Medipore
tape. No complications were encountered. Patient was then carefully positioned from the prone position to the supine position extubated. All needle sponge counts were correct at the end of procedure. My bookkeeper assistant, KEVAN Eric, was necessary for all
portions of procedure, including positioning, dissection, retraction, irrigation, suture management.
Discharge Plan
-
Patient Disposition: Intermediate/SNF
Discharge Diagnosis/Procedures: Acute epidural hemorrhage T10-L2 with severe spinal cord compression and central canal stenosis, Hypertension, CKD stage III, hyperlipidemia, history of small bowel obstruction, anxiety/depression, dementia.
Condition: Fair
Diet: Regular
Activity: With assistance
Driving Restrictions: No driving
Bathing Restrictions: OK to Shower
Other Services: PT and OT
Referrals:
Jose Betancourt MD [Family Provider] - in less than 1 week
Cynthia Ham MD [Active] - in one to two weeks
Additional Discharge Medication Instructions: Take levofloxacin 250 mg tablet by mouth 1 tablet daily. 04/08/2024 dose already given in the hospital. Take 1 dose on 04/09 2024
Take metronidazole 500 mg 1 tablet by mouth 3 times a day until 04/09/2024
Prescriptions:
New
metronidazole 500 mg Tablet
500 mg PO Q8 Qty: 0 0RF
Rx Instructions:
take 1 tab every 8 hours until 04/09/24
levofloxacin 250 mg Tablet
250 mg PO DAILY Qty: 0 0RF
Rx Instructions:
Take 1 tablet on 04/09/24
Continued
sertraline 25 mg Tablet
75 mg PO DAILY Qty: 0
acetaminophen 325 mg Tablet
650 mg PO Q6HPRN PRN (Reason: mild pain/fever)
metoprolol succinate 50 mg Tablet Extended Release 24 Hr
50 mg PO DAILY
sennosides-docusate sodium [Senna Plus] 8.6-50 mg Tablet
1 tab-cap PO BID
risperidone 0.25 mg tablet
0.5 mg PO DAILY
risperidone 0.25 mg Tablet
0.25 mg PO QPM
melatonin 3 mg Tablet
6 mg PO HS
magnesium hydroxide [Milk of Magnesia] 400 mg/5 mL Suspension
30 ml PO DAILYPRN PRN (Reason: constipation)
nifedipine 60 mg tablet extended release 24hr
60 mg PO DAILY
bisacodyl [Dulcolax (bisacodyl)] 10 mg Suppository
10 mg [place] DAILYPRN PRN (Reason: if no bm x 3 days)
Fleet Enema 19-7 gram/118 mL Enema
118 ml [place] DAILYPRN PRN (Reason: if no bm x 4 days)
balsam lety-zinc oxide Ointment
1 ea TOPICAL TID
Patient Comments:
apply to groin
polyethylene glycol 3350 17 gram powder in packet
17 grams PO DAILYPRN PRN (Reason: constipation)
Discharge Orders:
Discharge Patient (As Directed); Ordered 04/08/24
Ordered By: Tristan Jaci
Discharge Date and Time
Print Language: VENEZUELAN
--- NOTE | 2024-04-08 09:38 | CM ---
Reviewed the chart notes. Patient for discharge back to [facility] today. Patient's son updated via telephone.
Call report to: [phone]
Fax report to: [phone]
Medical necessity and transport forms on the chart.
[2024-04-08 09:44] LABS: Hematocrit 31.4 % (37.0-47.0); Hemoglobin 10.7 g/dL (12.0-16.0); Mean Corp Hgb Conc. 34.1 g/dL (33.0-37.0); Mean Corpuscular Hgb 29.4 pg (27.0-31.0); Mean Corpuscular Volume 86.3 fL (81.0-99.0); Mean Platelet Volume 11.4 fL (7.4-10.4); Platelet Count 225 10^3/uL (130-400); Red Blood Cell Count 3.64 10^6/uL (4.20-5.40); White Blood Cell Count 8.6 10^3/uL (4.8-10.8)
--- NOTE | 2024-04-08 09:49 | PTCARENOTE ---
Pt with no urine output. Bladder scan showing 514mL in bladder. Provider aware this would be third straight cath. Order for Holbrook placed. 14Fr holbrook placed. Holbrook bag with initial drainage of 475mL thuy urine. Plan to discharge patient back to [facility]
today with Holbrook.
[2024-04-08 10:32] LABS: Blood Urea Nitrogen 26 mg/dl (7-17); Calcium 8.8 mg/dl (8.4-10.2); Carbon Dioxide 26 mmol/L (22-30); Chloride 102 mmol/L (98-107); Estimated Creatinine Clearance 38 ml/min; Glucose 117 mg/dl (70-99); Potassium 3.7 mmol/L (3.5-5.1); Sodium 138 mmol/L (135-145); eGFR 43.54
--- NOTE | 2024-04-08 12:21 | PN.NS ---
Subjective
-
Patient seen and examined. Son is at bedside.
Son reports that agitation is baseline for patient.
Physical Exam
-
Exam:
Awake, alert, no apparent distress. Conversant. Able to communicate in Guatemalan and simple sentences.
Motor: 2/5 strength in bilateral knee extension, as well as dorsi and plantarflexion. 1/5 in bilateral hip flexion. Strength is improved, compared with previous examination
Some flickers of muscle movement noted approximately in thighs/quadriceps with gravity removed
Sensation: Intact to light touch.
Problems
-
Problem Status Onset Code
Spinal cord lesion G95.9
Paralysis G83.9
Assessment / Plan
-
88 yo F presents with low back pain, abd pain and acute onset of LE weakness, and urinary retention. MRI thoracolumbar spine demonstrates soft tissue lesion from T10-L2 highly suspicious for epidural hematoma.
Postoperative day 5, status post T10-L2 laminectomy for evacuation of epidural hematoma.
Neurological examination/motor examination steadily improving, compared with preoperative status, given that she had 0/5 strength in lower extremities preoperatively.
Will need aggressive physical therapy/Occupational Therapy--mobilization.
Okay to discharge from neurosurgical standpoint, when cleared from medical perspective.
Patient will need follow-up in the office in approximately 2 weeks for wound check/staple removal.
Today's Communication
-
Discussed with patient's son at bedside
[2024-04-08 12:40] VITALS: BP 146/74
== END 2024-04-08 13:20 | DRG 28 ==
LOC: 2 SOUTH 02:26
PROVIDERS: Nurse Practitioner; ADMITTING PHYSICIAN Student in an Organized Health Care Education/Training Program; ATTENDING PHYSICIAN Internal Medicine; CONSULT PHYSICIAN Neurological Surgery; CONSULT PHYSICIAN Psychiatry & Neurology Psychiatry; EMERGENCY PHYSICIAN Student in an Organized Health Care Education/Training Program; FAMILY PHYSICIAN Internal Medicine
PROC: 00NY0ZZ Release Lumbar Spinal Cord, Open Approach (ICD-10-PCS; 2024-04-03)
PROC: 009Y00Z Drainage of Lumbar Spinal Cord with Drainage Device, Open Approach (ICD-10-PCS; 2024-04-03)
DX: S34.101A Unspecified injury to L1 level of lumbar spinal cord, initial encounter (principal); S24.103A Unspecified injury at T7-T10 level of thoracic spinal cord, initial encounter; S24.104A Unspecified injury at T11-T12 level of thoracic spinal cord, initial encounter; D62 Acute posthemorrhagic anemia; G83.4 Cauda equina syndrome; J98.11 Atelectasis; K57.32 Diverticulitis of large intestine without perforation or abscess without bleeding; M84.48XA Pathological fracture, other site, initial encounter for fracture; G95.29 Other cord compression; F03.94 Unspecified dementia, unspecified severity, with anxiety; R45.851 Suicidal ideations; Z66 Do not resuscitate; F03.90 Unspecified dementia, unspecified severity, without behavioral disturbance, psychotic disturbance, mood disturbance, and anxiety; N18.30 Chronic kidney disease, stage 3 unspecified; I12.9 Hypertensive chronic kidney disease with stage 1 through stage 4 chronic kidney disease, or unspecified chronic kidney disease; F32.A Depression, unspecified; S34.102A Unspecified injury to L2 level of lumbar spinal cord, initial encounter; E78.00 Pure hypercholesterolemia, unspecified; F41.9 Anxiety disorder, unspecified; M51.36 Other intervertebral disc degeneration, lumbar region; M48.061 Spinal stenosis, lumbar region without neurogenic claudication; M51.37 Other intervertebral disc degeneration, lumbosacral region; M48.07 Spinal stenosis, lumbosacral region; M41.9 Scoliosis, unspecified; R33.9 Retention of urine, unspecified; R32 Unspecified urinary incontinence; Z79.899 Other long term (current) drug therapy; Z87.19 Personal history of other diseases of the digestive system; Z88.0 Allergy status to penicillin
CPT/HCPCS: 88305; 51701; 51702; 72100; 72146; 72147; 72148; 72149; 74176; 76000; 80048; 80053; 81003; 81015; 82607; 82728; 83540; 83550; 83735; 85025; 85027; 85610; 85730; 87070; 92610; 93005; 96361; 96374; 96375; 97163; 97167; 97530; 97535; 99285; A9575

== ENCOUNTER → 2024-04-13 12:07 | Outpatient (REF) | payer MEDICARE, SELFPAY ==
[2024-04-13 12:56] LABS: % Basophils 0.7 % (0-2); % Eosinophils 3.4 % (0-6); % Immature Granulocytes 1.9 % (0-0.5); % Lymphocytes 11.7 % (20.5-51.1); % Monocytes 5.9 % (1.7-9.3); % Neutrophils 76.4 % (42.2-75.2); Absolute Basophils 0.1 10^3/uL (0-0.2); Absolute Eosinophils 0.3 10^3/uL (0-0.7); Absolute Immature Granulocytes 0.1 10^3/uL (0-0.05); Absolute Lymphocytes 0.9 10^3/uL (1.2-3.4); Absolute Monocytes 0.4 10^3/uL (0.1-0.6); Absolute Neutrophils 5.6 10^3/uL (1.4-6.5); Hematocrit 31.8 % (37.0-47.0); Hemoglobin 10.8 g/dL (12.0-16.0); Mean Corpuscular Hgb 29.7 pg (27.0-31.0); Mean Corpuscular Volume 87.4 fL (81.0-99.0); Mean Platelet Volume 11.1 fL (7.4-10.4); Nucleated Red Blood Cells % 0 %; Platelet Count 262 10^3/uL (130-400); Red Blood Cell Count 3.64 10^6/uL (4.20-5.40); Red Cell Dist. Width 14.2 % (11.5-14.5); White Blood Cell Count 7.3 10^3/uL (4.8-10.8)
[2024-04-13 13:06] LABS: Blood Urea Nitrogen 23 mg/dl (7-17); Calcium 8.4 mg/dl (8.4-10.2); Carbon Dioxide 26 mmol/L (22-30); Chloride 105 mmol/L (98-107); Glucose 109 mg/dl (70-99); Potassium 3.7 mmol/L (3.5-5.1); Sodium 137 mmol/L (135-145); eGFR 43.54
== END ==
LOC: OLABWHC 12:07
PROVIDERS: ATTENDING PHYSICIAN Internal Medicine
DX: G83.4 Cauda equina syndrome (principal); S06.4XAD Epidural hemorrhage with loss of consciousness status unknown, subsequent encounter
CPT/HCPCS: 36415; 80048; 85025

== ENCOUNTER → 2024-05-28 17:36 | Outpatient (REF) | payer MEDICARE, SELFPAY ==
[2024-05-28 19:16] LABS: Urine Albumin 1+ (Neg - Trace); Urine Bilirubin Negative (Negative); Urine Character Very Cloudy (Clear); Urine Color Yellow; Urine Glucose Negative (Negative); Urine Ketone Negative (Negative); Urine Leukocyte 2+ (Negative); Urine Nitrite Negative (Negative); Urine Occult Blood 2+ (Negative); Urine Specific Gravity 1.015 (<1.030); Urine Urobilinogen Negative (Neg - 1+)
[2024-05-28 19:46] LABS: Urine Bacteria Many (Negative); Urine Red Blood Cell 16-20 /HPF (0-2); Urine Triple Phosphate Crystal Present
== END ==
LOC: OLABWHC 17:36
PROVIDERS: ATTENDING PHYSICIAN Internal Medicine
DX: N18.9 Chronic kidney disease, unspecified (principal)
CPT/HCPCS: 81003; 81015; 87077; 87086; 87088; 87186